=== PATIENT | female | born 1985 | race Caucasian/White ===

== ENCOUNTER 2016-09-18 10:06 | Emergency (ER) | payer OTHER ==
[2016-09-18 11:05] LABS: Appearance,Urine Clear (Clear); Bacteria,Urine Rare /hpf; Bilirubin,Urine Negative (Negative); Glucose,Urine (UA) Negative (Negative); Ketones,Urine Negative (Negative); Leukocyte Esterase,Urine Trace (Negative); Nitrite,Urine Negative (Negative); Particle Count 1500; Protein,Urine Negative (Negative); RBC,Urine 1 /hpf (0-5); Specific Gravity,Urine 1.002 (1.001-1.035); Squamous Epithelial Cell,Urine 2 /hpf (0-4); UA Billing (MACRO vs. MICRO) MICRO; Urobilinogen,Urine <2.0 mg/dL (<2.0); WBC,Urine 2 /hpf (0-5)
--- NOTE | 2016-09-18 11:14 | ED ---
Female Urogenital HPI - General Chief complaint: Vaginal Bleeding Stated complaint: poss miscarrage Time Seen by Provider: 09/18/16 10:30 Source: patient, RN notes reviewed Mode of arrival: ambulatory Limitations: no limitations - History of Present Illness Initial comments: 30-year-old female presents emergency Department with chief complaint of vaginal bleeding. Patient states that she is a 2. Patient states that she started having increased bleeding today has been seen in emergency department has had repeat hCG levels taken. Patient had an ultrasound already. Patient states that her RATE CLERK is Dr. Carrasco. Patient states that is bright red blood there is no clots no tissue. She states she has cramping that feels like it is her menstrual cycle. Last Menstrual Period: 08/11/16 - Related Data Home Medications Medication Instructions Recorded Confirmed Escitalopram [Lexapro] 20 mg PO DAILY 09/14/16 09/18/16 diphenhydrAMINE HCL [Benadryl] 25 mg PO HS 09/14/16 09/18/16 Allergies Allergy/AdvReac Type Severity Reaction Status Date / Time latex AdvReac Mild Rash/Hives Verified 09/18/16 10:40 Review of Systems ROS Statement: Those systems with pertinent positive or pertinent negative responses have been documented in the HPI. ROS Other: All systems not noted in ROS Statement are negative. Past Medical History Additional Past Medical History / Comment(s): appendectomy 2007, 2009 eptopic right fallopian tube removed. History of Any Multi-Drug Resistant Organisms: None Reported Past Surgical History: Appendectomy Past Anesthesia/Blood Transfusion Reactions: No Reported Reaction Past Psychological History: Anxiety, Bipolar Smoking Status: Current every day smoker Past Drug Use History: None Reported, Cocaine, Heroin, Marijuana, Opiates, Prescription Drug Abuse - Past Family History Brother(s) Family Medical History: Unable to Obtain Father Family Medical History: Hypertension General Exam Limitations: no limitations General appearance: alert, in no apparent distress Head exam: Present: atraumatic, normocephalic, normal inspection Respiratory exam: Present: normal lung sounds bilaterally. Absent: respiratory distress, wheezes, rales, rhonchi, stridor Cardiovascular Exam: Present: regular rate, normal rhythm, normal heart sounds. Absent: systolic murmur, diastolic murmur, rubs, gallop, clicks GI/Abdominal exam: Present: soft, normal bowel sounds. Absent: distended, tenderness, guarding, rebound, rigid Back exam: Absent: CVA tenderness (R), CVA tenderness (L) Neurological exam: Present: alert, oriented X3, CN II-XII intact Skin exam: Present: warm, dry, intact, normal color. Absent: rash Course Vital Signs 09/18/16 09/18/16 10:18 12:10 Temperature 98.5 F 97.6 F Pulse Rate 73 59 L Respiratory 18 16 Rate Blood Pressure 108/60 97/52 O2 Sat by Pulse 99 99 Oximetry Medical Decision Making - Lab Data Lab Results 09/18/16 09/18/16 Range/Units 10:55 11:00 HCG, Quant 408.1 mIU/mL Urine Color Colorless Urine Appearance Clear (Clear) Urine pH 6.0 (5.0-8.0) Ur Specific [place] 1.002 (1.001-1.035) Urine Protein Negative (Negative) Urine Glucose (UA) Negative (Negative) Urine Ketones Negative (Negative) Urine Blood Moderate H (Negative) Urine Nitrite Negative (Negative) Urine Bilirubin Negative (Negative) Urine Urobilinogen <2.0 (<2.0) mg/dL Ur Leukocyte Esterase Trace H (Negative) Urine RBC 1 (0-5) /hpf Urine WBC 2 (0-5) /hpf Ur Squamous Epith Cells 2 (0-4) /hpf Urine Bacteria Rare H (None) /hpf Disposition Clinical Impression: Threatened miscarriage in early Disposition: HOME SELF-CARE Condition: Stable Instructions: Threatened Miscarriage (ED) Additional Instructions: Please return to the Emergency Department if symptoms worsen or any other concerns. Referrals: Jamarcus Carrasco DO [Primary Care Provider] - 1-2 days Time of Disposition: 12:13
[2016-09-18 12:13] VITALS: BP 97/52; PULSE 59; RESP 16; TEMP 97.6
== END 2016-09-18 12:17 | disposition home or self-care (01) ==
LOC: EC 10:06 → MERGE 10:06 → EC 12:17
DX: O20.0 Threatened abortion (principal); Z3A.01 Less than 8 weeks gestation of pregnancy; F31.9 Bipolar disorder, unspecified; F41.9 Anxiety disorder, unspecified; F17.200 Nicotine dependence, unspecified, uncomplicated; Z79.899 Other long term (current) drug therapy; Z91.040 Latex allergy status
CPT/HCPCS: 36415; 81001; 84702; 99284

== ENCOUNTER 2016-09-21 09:01 | Emergency (ER) | payer OTHER ==
[2016-09-21 09:08] VITALS: BP 119/56; PULSE 78; RESP 16; TEMP 97.6
--- NOTE | 2016-09-21 09:36 | ED ---
Female Urogenital HPI - General Chief complaint: Vaginal Bleeding Stated complaint: bleeding, 5 weeks preg Time Seen by Provider: 09/21/16 09:08 Source: patient, RN notes reviewed Mode of arrival: ambulatory Limitations: no limitations - History of Present Illness Initial comments: 30-year-old female presents emergency department for recheck vaginal bleeding possible miscarriage. Patient has had bleeding last week or 2 and states that she's my had multiple ER visits with recheck ECGs. Patient states that has not been climbing as high as it should. Patient states that she has on-and-off abdominal cramping. Patient states she still is bright red blood per has slowed down tremendously. Patient states he has not been going through a pad every few hours. Patient states is less than her normal mental cycle. She denies any dysuria hematuria. Patient has no nausea vomiting diarrhea constipation. She has not seen her ENGINE DISPATCHER at this time. Last Menstrual Period: 08/11/16 - Related Data Home Medications Medication Instructions Recorded Confirmed Escitalopram [Lexapro] 20 mg PO DAILY 09/14/16 09/21/16 diphenhydrAMINE HCL [Benadryl] 25 mg PO HS 09/14/16 09/21/16 Allergies Allergy/AdvReac Type Severity Reaction Status Date / Time latex AdvReac Mild Rash/Hives Verified 09/21/16 09:11 Review of Systems ROS Statement: Those systems with pertinent positive or pertinent negative responses have been documented in the HPI. ROS Other: All systems not noted in ROS Statement are negative. Past Medical History Past Medical History: No Reported History Additional Past Medical History / Comment(s): no street drug since 2013 cacaine , heroin, opiates, marijuana History of Any Multi-Drug Resistant Organisms: None Reported Past Surgical History: Appendectomy Additional Past Surgical History / Comment(s): 2009 eptopic right fallopian tube removed. Past Anesthesia/Blood Transfusion Reactions: No Reported Reaction Past Psychological History: Anxiety, Bipolar Smoking Status: Current every day smoker Past Alcohol Use History: None Reported Past Drug Use History: None Reported - Past Family History Brother(s) Family Medical History: Unable to Obtain Father Family Medical History: Hypertension General Exam Limitations: no limitations General appearance: alert, in no apparent distress Respiratory exam: Present: normal lung sounds bilaterally. Absent: respiratory distress, wheezes, rales, rhonchi, stridor Cardiovascular Exam: Present: regular rate, normal rhythm, normal heart sounds. Absent: systolic murmur, diastolic murmur, rubs, gallop, clicks GI/Abdominal exam: Present: soft, normal bowel sounds. Absent: distended, tenderness, guarding, rebound, rigid Course Vital Signs 09/21/16 09:05 Temperature 97.6 F Pulse Rate 78 Respiratory 16 Rate Blood Pressure 119/56 O2 Sat by Pulse 96 Oximetry Medical Decision Making - Medical Decision Making 30-year-old female presented emergency department for recheck vaginal bleeding possible miscarriage. Patient's hCG G1 up from 400-700. Patient will follow- up with ENGINE DISPATCHER on Wednesday at her scheduled appointment return parameters were discussed. - Lab Data Lab Results 09/21/16 Range/Units 09:17 HCG, Quant 700.0 mIU/mL Disposition Clinical Impression: Threatened miscarriage in early Disposition: HOME SELF-CARE Condition: Stable Instructions: Threatened Miscarriage (ED) Additional Instructions: Please return to the Emergency Department if symptoms worsen or any other concerns. Referrals: Jamarcus Carrasco DO [REFERRING] - 1-2 days Time of Disposition: 10:08
== END 2016-09-21 10:05 | disposition home or self-care (01) ==
LOC: EC 09:01 → MERGE 09:01 → EC 10:05
DX: O20.0 Threatened abortion (principal); O99.341 Other mental disorders complicating pregnancy, first trimester; O99.331 Smoking (tobacco) complicating pregnancy, first trimester; F31.9 Bipolar disorder, unspecified; F41.9 Anxiety disorder, unspecified; F17.200 Nicotine dependence, unspecified, uncomplicated; Z3A.01 Less than 8 weeks gestation of pregnancy; Z79.899 Other long term (current) drug therapy; Z91.040 Latex allergy status; Z90.49 Acquired absence of other specified parts of digestive tract
CPT/HCPCS: 36415; 84702; 99284

== ENCOUNTER 2016-09-23 12:30 | Emergency (ER) | payer OTHER ==
--- NOTE | 2016-09-23 13:04 | ED ---
General Adult HPI - General Chief complaint: Abdominal Pain Stated complaint: L side cramping. 6 wks Time Seen by Provider: 09/23/16 12:52 Source: patient, RN notes reviewed, old records reviewed Mode of arrival: ambulatory Limitations: no limitations - History of Present Illness Initial comments: Patient 30-year-old female G4, P2 who presents emergency room today with a chief complaint of increased left lower quadrant pain. She does admit that she' s been having vaginal bleeding over the last week and a half. Does admit that she's had multiple visits here to the emergency room for this . She believes she is less than 6 weeks . Patient does admit that yesterday started having increased left lower quadrant pain. Patient states she's tried to call her PRODUCTION CONTROL MANAGER. She states she does have an appointment this coming Wednesday but did not have any answer today. Patient states still having vaginal bleeding. States is not been change in the amount. Denies any frequency symptoms. Patient denies any recent fever, chills, shortness of breath, chest pain, back pain, nausea or vomiting, numbness or tingling, dysuria or hematuria , constipation or diarrhea, headaches or visual changes, or any other complaints. - Related Data Home Medications Medication Instructions Recorded Confirmed FLUoxetine HCL [PROzac] 20 mg PO DAILY 09/23/16 09/23/16 [id number] Acid 1 cap PO HS 09/23/16 09/23/16 [-U Capsule (formulary)] Allergies Allergy/AdvReac Type Severity Reaction Status Date / Time latex Allergy Rash/Hives Verified 09/23/16 13:36 narcotics Allergy Unknown Uncoded 09/23/16 12:37 Review of Systems ROS Statement: Those systems with pertinent positive or pertinent negative responses have been documented in the HPI. ROS Other: All systems not noted in ROS Statement are negative. Past Medical History Past Medical History: No Reported History Additional Past Medical History / Comment(s): no street drug since 2013 cacaine , heroin, opiates, marijuana History of Any Multi-Drug Resistant Organisms: None Reported Past Surgical History: Appendectomy Additional Past Surgical History / Comment(s): 2009 eptopic right fallopian tube removed. Past Anesthesia/Blood Transfusion Reactions: No Reported Reaction Past Psychological History: Anxiety, Bipolar, No Psychological Hx Reported Smoking Status: Current every day smoker Past Alcohol Use History: None Reported Past Drug Use History: None Reported - Past Family History Brother(s) Family Medical History: Unable to Obtain Father Family Medical History: Hypertension General Exam - General Exam Comments Initial Comments: General: The patient is awake and alert, in no distress, and does not appear acutely ill. Eye: Pupils are equal, round and reactive to light, extra-ocular movements are intact. No nystagmus. There is normal conjunctiva bilaterally. No signs of icterus. Ears, nose, mouth and throat: There are moist mucous membranes and no oral lesions. Neck: The neck is supple, there is no tenderness or JVD. Cardiovascular: There is a regular rate and rhythm. No murmur, rub or gallop is appreciated. Respiratory: Lungs are clear to auscultation, respirations are non-labored, breath sounds are equal. No wheezes, stridor, rales, or rhonchi. Gastrointestinal: Soft, non-distended, non-tender abdomen without masses or organomegaly noted. There is no rebound or guarding present. No CVA tenderness. Bowel sounds are unremarkable. Musculoskeletal: Normal ROM, no tenderness. Strength 5/5. Sensation intact. Pulses equal bilaterally 2+. Neurological: A&O x 3. CN II-XII intact, There are no obvious motor or sensory deficits. Coordination appears grossly intact. Speech is normal. Skin: Skin is warm and dry and no rashes or lesions are noted. Psychiatric: Cooperative, appropriate mood & affect, normal judgment. Limitations: no limitations Course Vital Signs 09/23/16 12:35 Temperature 98.1 F Pulse Rate 80 Respiratory 20 Rate Blood Pressure 106/56 O2 Sat by Pulse 98 Oximetry Medical Decision Making - Medical Decision Making Patient's ultrasound shows no evidence of gestational sac or ectopic at this time. Patient's beta hCG has dropped from 700 from just 2 days ago down to 230s today. Results were discussed with the patient. Patient advised us that the miscarriage at this time. Patient is advised follow-up the PRODUCTION CONTROL MANAGER over the next 1-2 days. Advised return to emergency room symptoms increase or worsen or for any other concerns. Patient states understanding and is in agreement. - Lab Data Result diagrams: 09/23/16 13:18 09/23/16 13:18 Lab Results 08/09/17 08/09/17 08/09/17 Range/Units 13:18 13:18 13:40 WBC 9.0 (3.8-10.6) k/uL RBC 4.07 (3.80-5.40) m/uL Hgb 12.5 (11.4-16.0) gm/dL Hct 38.5 (34.0-46.0) % MCV 94.7 (80.0-100.0) fL MCH 30.8 (25.0-35.0) pg MCHC 32.5 (31.0-37.0) g/dL RDW 13.5 (11.5-15.5) % Plt Count 284 (150-450) k/uL Neutrophils % 68 % Lymphocytes % 24 % Monocytes % 4 % Eosinophils % 2 % Basophils % 0 % Neutrophils # 6.1 (1.3-7.7) k/uL Lymphocytes # 2.2 (1.0-4.8) k/uL Monocytes # 0.3 (0-1.0) k/uL Eosinophils # 0.2 (0-0.7) k/uL Basophils # 0.0 (0-0.2) k/uL Sodium 140 (137-145) mmol/L Potassium 4.3 (3.5-5.1) mmol/L Chloride 106 (98-107) mmol/L Carbon Dioxide 24 (22-30) mmol/L Anion Gap 10 mmol/L BUN 11 (7-17) mg/dL Creatinine 0.77 (0.52-1.04) mg/dL Est GFR (MDRD) Af Amer >60 (>60 ml/min/1.73 sqM) Est GFR (MDRD) Non-Af >60 (>60 ml/min/1.73 sqM) Glucose 83 (74-99) mg/dL Calcium 9.2 (8.4-10.2) mg/dL Total Bilirubin 0.3 (0.2-1.3) mg/dL AST 19 (14-36) U/L ALT 30 (9-52) U/L Alkaline Phosphatase 51 (38-126) U/L Total Protein 7.7 (6.3-8.2) g/dL Albumin 4.5 (3.5-5.0) g/dL HCG, Quant 238.7 mIU/mL Urine Color Yellow Urine Appearance Cloudy H (Clear) Urine pH 7.0 (5.0-8.0) Ur Specific [place] 1.013 (1.001-1.035) Urine Protein Negative (Negative) Urine Glucose (UA) Negative (Negative) Urine Ketones Negative (Negative) Urine Blood Large H (Negative) Urine Nitrite Negative (Negative) Urine Bilirubin Negative (Negative) Urine Urobilinogen <2.0 (<2.0) mg/dL Ur Leukocyte Esterase Negative (Negative) Urine RBC 3 (0-5) /hpf Urine WBC 3 (0-5) /hpf Ur Squamous Epith Cells 1 (0-4) /hpf Urine Bacteria Rare H (None) /hpf Urine Mucus Rare H (None) /hpf Disposition Clinical Impression: Threatened Disposition: HOME SELF-CARE Condition: Stable Instructions: Threatened Miscarriage (ED) Additional Instructions: Please follow-up with PRODUCTION CONTROL MANAGER over the next 1-2 days. Please return to emergency room if symptoms increase or worsen or for any other concerns. Referrals: Osmar Adams DO [Primary Care Provider] - 1-2 days Time of Disposition: 15:20
[2016-09-23 14:10] LABS: Basophils % (A) 0 %; CH 31.8; CHCM 33.7; Eosinophils # (A) 0.2 k/uL (0-0.7); Eosinophils % (A) 2 %; HCT 38.5 % (34.0-46.0); HDW 2.11; HGB 12.5 gm/dL (11.4-16.0); Luc # (Auto) 0.13; Luc % (Auto) 2; Lymphocytes # (A) 2.2 k/uL (1.0-4.8); Lymphocytes % (A) 24 %; MCH 30.8 pg (25.0-35.0); MCHC 32.5 g/dL (31.0-37.0); MCV 94.7 fL (80.0-100.0); Mean Platelet Volume 7.7; Monocytes # (A) 0.3 k/uL (0-1.0); Monocytes % (A) 4 %; Neutrophils # (A) 6.1 k/uL (1.3-7.7); Neutrophils % (A) 68 %; RBC 4.07 m/uL (3.80-5.40); RDW 13.5 % (11.5-15.5); WBC (Perox) 9.73
[2016-09-23 14:19] LABS: ALT 30 U/L (9-52); AST 19 U/L (14-36); Alkaline Phosphatase 51 U/L (38-126); Anion Gap 10 mmol/L; Blood Urea Nitrogen 11 mg/dL (7-17); Calcium 9.2 mg/dL (8.4-10.2); Carbon Dioxide 24 mmol/L (22-30); Chloride 106 mmol/L (98-107); Glucose 83 mg/dL (74-99); Non-African American GFR(MDRD) >60 (>60 ml/min/1.73 sqM); Potassium 4.3 mmol/L (3.5-5.1); Sodium 140 mmol/L (137-145); Total Bilirubin 0.3 mg/dL (0.2-1.3); Total Protein 7.7 g/dL (6.3-8.2)
[2016-09-23 14:33] LABS: Appearance,Urine Cloudy (Clear); Bilirubin,Urine Negative (Negative); Glucose,Urine (UA) Negative (Negative); Ketones,Urine Negative (Negative); Protein,Urine Negative (Negative); Specific Gravity,Urine 1.013 (1.001-1.035)
[2016-09-23 14:34] LABS: Bacteria,Urine Rare /hpf; Leukocyte Esterase,Urine Negative (Negative); Mucus,Urine Rare /hpf; Nitrite,Urine Negative (Negative); Particle Count 2946; RBC,Urine 3 /hpf (0-5); Squamous Epithelial Cell,Urine 1 /hpf (0-4); UA Billing (MACRO vs. MICRO) MICRO; Urobilinogen,Urine <2.0 mg/dL (<2.0); WBC,Urine 3 /hpf (0-5)
[2016-09-23 14:37] LABS: HCG,Quantitative Serum 238.7 mIU/mL
--- NOTE | 2016-09-23 15:12 | US ---
EXAMINATION TYPE: US OB <=14 wks transvag plus Dopplers DATE OF EXAM: 09/23/2016 COMPARISON: 09/14/2016 CLINICAL HISTORY: 30-year-old female Pain. Bleeding x 1.5 weeks EXAM PERFORMED: Transvaginal (TV) and Transabdominal (TA). Color Doppler and spectral waveform glory sis of the ovarian arteries and veins. FINDINGS: EXAM MEASUREMENTS: GESTATIONAL AGE / DATING Physician Established: none Dates by LMP: ( 6 weeks/1 days) EDC: 05/18/2017 Dates by First Scan: none Dates by Current Scan for: no IUP MATERNAL ANATOMY Uterus: Anteverted measuring 7.1 x 4.6 x 5.2 cm. May be deformity along the anterior uterine body/low er uterine segment with focal flap-like deformity possibly relating to prior . There may be some associated calcifications. Endometrial stripe: 5.1 mm. Right Ovary: 1.5 x 2.1 x 1.4 cm with follicular change. Left Ovary: 2.5 x 2.4 x 2.2 cm with follicular change. Satisfactory arterial and venous flow on both sides. Post CDS / Adnexa: wnl Presence of free fluid: no Presence of corpus luteal cyst: no Presence of subchorionic bleed: no GESTATION / SURVEY IUP: No IUP seen at this time BOARDING HOUSE MANAGER NOTES: flap-like deformity of anterior unterine wall with calcifications, possibly consi stent with history of previous . Bilateral ovaries show arterial and venous waveforms; no i ndication of torsion IMPRESSION: 1. No visualized intrauterine or ectopic . In the setting of a positive test, diff erential considerations include early , failed , and nonvisualized ectopic pregnanc y. Recommend serial beta hCG and ultrasound follow-up as indicated. 2. Possible soft tissue deformity along the anterior uterus may represent sequela of prior . If indicated, MRI can better characterize the anatomy. 3. No sonographic evidence for ovarian torsion.
[2016-09-23 15:50] VITALS: BP 96/56; PULSE 74; RESP 18; TEMP 98.2
== END 2016-09-23 15:50 | disposition home or self-care (01) ==
LOC: EC 12:30
DX: O20.0 Threatened abortion (principal); O99.331 Smoking (tobacco) complicating pregnancy, first trimester; F17.200 Nicotine dependence, unspecified, uncomplicated; Z79.899 Other long term (current) drug therapy; Z88.5 Allergy status to narcotic agent; Z91.040 Latex allergy status; Z90.79 Acquired absence of other genital organ(s); Z90.49 Acquired absence of other specified parts of digestive tract; Z3A.01 Less than 8 weeks gestation of pregnancy
CPT/HCPCS: 36415; 76801; 76817; 80053; 81001; 84702; 85025; 87086; 99284

== ENCOUNTER → 2017-01-11 | Outpatient (CLI) | payer OTHER | END | disposition home or self-care (01) | LOC: LABWHC1 08:09 | PROVIDERS: ATTEND Obstetrics & Gynecology | DX: N91.2 Amenorrhea, unspecified (principal) | CPT/HCPCS: 36415; 84702 ==

== ENCOUNTER 2018-06-26 22:03 | Emergency (ER) | payer OTHER ==
[2018-06-26 22:12] VITALS: RESP 19
--- NOTE | 2018-06-26 22:17 | ED ---
Chest Pain HPI - General Chief Complaint: Chest Pain Stated Complaint: Chest Pain Time Seen by Provider: 06/26/18 22:16 Source: patient Mode of arrival: EMS Limitations: no limitations - History of Present Illness Initial Comments: Joelle a pleasant 32-year-old female with a distant history of polysubstance abuse who presents the ER today via EMS for evaluation of tightness in her chest. Patient reports that she was at a support meeting when she began to feel like there is tightness in her chest and she couldn't catch her breath. Patient reports this was similar to previous anxiety attacks. She left the meeting and return home but symptoms persisted at which time she contacted her primary care provider. Patient reports that her primary care provider had been concerned about an abnormality this on a previous EKG so they advised her to come to the ER for evaluation. Patient contacted EMS for transport to the hospital she was given aspirin but no nitro she remained hemodynamically stable and arrived in the ER reporting that she is feeling much better. - Related Data Home Medications Medication Instructions Recorded Confirmed Albuterol Inhaler [Ventolin Hfa 2 puff INHALATION RT-Q6H PRN 06/26/18 06/26/18 Inhaler] Citalopram Hydrobromide 20 mg PO DAILY 06/26/18 06/26/18 [Citalopram HBr] Metoclopramide [Reglan] 10 mg PO QID PRN 06/26/18 06/26/18 OXcarbazepine [Trileptal] 300 mg PO TID 06/26/18 06/26/18 Omeprazole [PriLOSEC] 20 mg PO DAILY 06/26/18 06/26/18 diphenhydrAMINE [Benadryl] 25 mg PO HS PRN 06/26/18 06/26/18 hydrOXYzine HCL 25 mg PO TID 06/26/18 06/26/18 Allergies Allergy/AdvReac Type Severity Reaction Status Date / Time latex Allergy Rash/Hives Verified 06/26/18 22:25 narcotics Allergy Unknown Uncoded 06/26/18 22:25 Review of Systems ROS Statement: Those systems with pertinent positive or pertinent negative responses have been documented in the HPI. ROS Other: All systems not noted in ROS Statement are negative. EKG Findings - EKG Comments: EKG Findings:: KG was obtained due to complaint of chest pain and EKG obtained at 2214, rate is 65 rhythm is sinus there is normal axis and normal intervals, NV 114, QRS 82, QTc is 438 there are no acute ST elevations or depressions there is no evidence of acute ischemia or infarction. Past Medical History Past Medical History: No Reported History Additional Past Medical History / Comment(s): no street drug since 2013 cacaine, heroin, opiates, marijuana History of Any Multi-Drug Resistant Organisms: None Reported Past Surgical History: Appendectomy Additional Past Surgical History / Comment(s): 2009 eptopic right fallopian tube removed. Past Anesthesia/Blood Transfusion Reactions: No Reported Reaction Past Psychological History: Anxiety, Bipolar, Depression Smoking Status: Current every day smoker Past Alcohol Use History: None Reported Past Drug Use History: Heroin, Marijuana - Past Family History Brother(s) Family Medical History: Unable to Obtain Father Family Medical History: Hypertension General Exam Limitations: no limitations Course Vital Signs 06/26/18 22:04 Temperature 98.5 F Pulse Rate 67 Respiratory 19 Rate Blood Pressure 146/67 O2 Sat by Pulse 99 Oximetry [facility] was seen and evaluated history was obtained from the patient Patient with no cardiac history only risk factor is smoking presenting with atypical chest pain physical exam is unremarkable PERC and Wells negative HEART score - 1 for smoking EKG is nonischemic X-ray with signs of a left-sided pleural effusion patient does report that she has recurrent bronchitis and has been told she had fluid on her lungs before Labs were ordered and resulted with no abnormalities d-dimer and troponin both negative She remained asymptomatic throughout her 2 hour stay in the emergency department All results were discussed with the patient, return parameters were discussed and the patient was discharged home in stable condition. - Wells Criteria Clinical Symptoms of DVT: (0) No No Alternative Diagnosis: (0) No Immobilization of Surgery in Previous 4 Weeks: (0) No Previous DVT/PE: (0) No Hemoptysis: (0) No Malignancy: (0) No - NING Score Age > 65: (0) No 3 or more CAD Risk Factors: (0) No Known CAD with more than 50% Stenosis: (0) No Aspirin use within the Past 7 Days: (0) No Elevated Cardiac Markers: (0) No ST Deviation Greater than 0.5mm: (0) No Disposition Clinical Impression: Atypical chest pain, Pleural effusion, Bronchitis, Tobacco abuse Disposition: HOME SELF-CARE Condition: Stable Instructions (If sedation given, give patient instructions): Chest Pain (ED) Is patient prescribed a controlled substance at d/c from ED?: No Referrals: Osmar Adams DO [Primary Care Provider] - 1-2 days
--- NOTE | 2018-06-26 23:08 | XR ---
EXAM: XR Chest, 2 Views CLINICAL HISTORY: ITS.REASON XR Reason: Pain TECHNIQUE: Frontal and lateral views of the chest. COMPARISON: No relevant prior studies available. FINDINGS: Lungs: Unremarkable. No consolidation. Pleural space: Small left pleural effusion. No pneumothorax. Heart: Unremarkable. No cardiomegaly. Mediastinum: Unremarkable. Bones/joints: No acute osseous abnormality. Tubes, lines and devices: Telemetry leads overlie the patient. IMPRESSION: Small left pleural effusion.
[2018-06-26 23:37] LABS: Basophils # (A) 0.1 k/uL (0-0.2); Basophils % (A) 1 %; Eosinophils # (A) 0.1 k/uL (0-0.7); Eosinophils % (A) 1 %; HCT 41.3 % (34.0-46.0); HGB 13.9 gm/dL (11.4-16.0); Lymphocytes # (A) 3.1 k/uL (1.0-4.8); Lymphocytes % (A) 32 %; MCH 31.7 pg (25.0-35.0); MCHC 33.8 g/dL (31.0-37.0); MCV 93.9 fL (80.0-100.0); Mean Platelet Volume 7.9; Monocytes # (A) 0.3 k/uL (0-1.0); Monocytes % (A) 4 %; Neutrophils # (A) 5.9 k/uL (1.3-7.7); Neutrophils % (A) 61 %; Platelet Count 226 k/uL (150-450); RDW 13.1 % (11.5-15.5); WBC 9.7 k/uL (3.8-10.6)
[2018-06-26 23:39] LABS: ALT 21 U/L (9-52); AST 22 U/L (14-36); Albumin 4.9 g/dL (3.5-5.0); Alkaline Phosphatase 57 U/L (38-126); Anion Gap 11 mmol/L; Blood Urea Nitrogen 14 mg/dL (7-17); Carbon Dioxide 25 mmol/L (22-30); Chloride 102 mmol/L (98-107); Glucose 89 mg/dL (74-99); Magnesium 1.9 mg/dL (1.6-2.3); Potassium 4.2 mmol/L (3.5-5.1); Sodium 138 mmol/L (137-145); Total Bilirubin 0.4 mg/dL (0.2-1.3); Total Protein 8.2 g/dL (6.3-8.2)
[2018-06-26 23:43] LABS: D-Dimer <0.17 mg/L FEU (<0.60); Partial Thromboplastin Time 27.3 sec (22.0-30.0); Prothrombin Time 10.9 sec (9.0-12.0)
[2018-06-27 00:32] VITALS: BP 132/83; PULSE 79; TEMP 98
== END 2018-06-27 00:30 | disposition home or self-care (01) ==
LOC: EC 22:03
DX: R07.89 Other chest pain (principal); J90 Pleural effusion, not elsewhere classified; J40 Bronchitis, not specified as acute or chronic; F31.9 Bipolar disorder, unspecified; F41.9 Anxiety disorder, unspecified; F17.200 Nicotine dependence, unspecified, uncomplicated; Z79.899 Other long term (current) drug therapy; Z88.5 Allergy status to narcotic agent; Z91.040 Latex allergy status
CPT/HCPCS: 36415; 71046; 80053; 83735; 84484; 85025; 85379; 85610; 85730; 93005; 99285

== ENCOUNTER → 2018-07-05 | Outpatient (CLI) | payer OTHER ==
--- NOTE | 2018-07-22 11:56 | EM ---
EVENT MONITOR DATE OF SERVICE: 07/05/2018 INDICATION: Palpitation. CLINICAL INFORMATION: The patient was monitored for 14 days. The baseline rhythm appeared to be a sinus mechanism. The patient did have overall sinus rhythm with multiple episodes of sinus tachycardia and multiple episodes of sinus bradycardia. Beside that, she did have multiple episode of paroxysmal atrial tachycardia with a total of 2 episodes only. At the end of the recording, the patient did have did have multiple PVCs with ventricular quadrigeminy. No evidence of sinus pause or sinus arrest seen. No evidence of any advanced AV block seen. CONCLUSION: 1. This is a 14 day event monitor. 2. The baseline rhythm is a sinus mechanism. 3. Frequent episodes of premature ventricular contractions. 4. The patient did have 2 episodes of paroxysmal atrial tachycardia. 5. At the end of recording, the patient did have multiple episodes of ventricular quadrigeminy. 6. No specific the patient did have multiple of symptoms including chest discomfort and the symptoms were associated with normal sinus mechanism. 7. I do advise a 24 hour Holter monitor to assess the frequency of the PVCs. MMODL / IJN: [id number] /
== END | disposition home or self-care (01) ==
LOC: RADECHMAIN 09:31
PROVIDERS: ATTEND Family Medicine
DX: R42 Dizziness and giddiness (principal); I49.3 Ventricular premature depolarization; I47.1 Supraventricular tachycardia
CPT/HCPCS: 93270

== ENCOUNTER 2018-07-15 12:04 | Emergency (ER) | payer OTHER ==
[2018-07-15 12:17] VITALS: RESP 18; TEMP 98.2
--- NOTE | 2018-07-15 12:50 | ED ---
Abdominal Pain HPI - General Chief Complaint: Abdominal Pain Stated Complaint: Abd Pain-6 weeks Time Seen by Provider: 07/15/18 12:26 Source: patient Mode of arrival: ambulatory Limitations: no limitations - History of Present Illness Initial Comments: Patient is a 32-year-old female complaining of lower abdominal cramping 1 day. She took a home test which was negative but then had a blood work done in [place] 10 days ago which showed a positive . Denies abdominal pain, fever, vaginal bleeding or discharge. States she feels very similar to last time she was , with associated nausea at times and breast tenderness. This would be her sixth . Of note, patient is asking for a refill on her psych medicines, oxcarbazepine, as she switched doctors and is afraid she will run out. - Related Data Home Medications Medication Instructions Recorded Confirmed Citalopram Hydrobromide 20 mg PO DAILY 06/26/18 07/15/18 [Citalopram HBr] OXcarbazepine [Trileptal] 300 mg PO TID 06/26/18 07/15/18 Omeprazole [PriLOSEC] 20 mg PO DAILY 06/26/18 07/15/18 diphenhydrAMINE [Benadryl] 25 - 50 mg PO HS PRN 06/26/18 07/15/18 hydrOXYzine HCL 25 mg PO TID 06/26/18 07/15/18 Previous Rx's Medication Instructions Recorded OXcarbazepine [Trileptal] 300 mg PO TID 3 Days #9 tablet 07/15/18 Allergies Allergy/AdvReac Type Severity Reaction Status Date / Time latex Allergy Rash/Hives Verified 07/15/18 12:41 narcotics Allergy Unknown Uncoded 07/15/18 12:17 Review of Systems ROS Statement: Those systems with pertinent positive or pertinent negative responses have been documented in the HPI. ROS Other: All systems not noted in ROS Statement are negative. Past Medical History Past Medical History: Atrial Fibrillation Additional Past Medical History / Comment(s): no street drug since 2013 cocaine, heroin, opiates, marijuana History of Any Multi-Drug Resistant Organisms: None Reported Past Surgical History: Appendectomy Additional Past Surgical History / Comment(s): 2009 eptopic right fallopian tube removed. Past Anesthesia/Blood Transfusion Reactions: No Reported Reaction Past Psychological History: Anxiety, Bipolar, Depression Smoking Status: Current every day smoker Past Alcohol Use History: None Reported Past Drug Use History: Heroin, Marijuana - Past Family History Brother(s) Family Medical History: Unable to Obtain Father Family Medical History: Hypertension General Exam - General Exam Comments Initial Comments: GENERAL: Well-appearing, well-nourished and in no acute distress. HEAD: Atraumatic, normocephalic. EYES: Pupils equal round and reactive to light, extraocular movements intact, sclera anicteric, conjunctiva are normal. ENT: TMs normal, nares patent, oropharynx clear without exudates. Moist mucous membranes. NECK: Normal range of motion, supple without lymphadenopathy or JVD. LUNGS: Breath sounds clear to auscultation bilaterally and equal. No wheezes rales or rhonchi. HEART: Regular rate and rhythm without murmurs, rubs or gallops. ABDOMEN: Soft, nontender, normoactive bowel sounds. No guarding, no rebound. No masses appreciated. : Deferred EXTREMITIES: Normal range of motion, no pitting or edema. No clubbing or cyanosis. NEUROLOGICAL: Cranial nerves II through XII grossly intact. Normal speech, normal gait. PSYCH: Normal mood, normal affect. SKIN: Warm, Dry, normal turgor, no rashes or lesions noted. Limitations: no limitations Course Vital Signs 07/15/18 07/15/18 12:14 14:51 Temperature 98.2 F Pulse Rate 83 68 Respiratory 18 18 Rate Blood Pressure 115/63 111/70 O2 Sat by Pulse 98 100 Oximetry Medical Decision Making - Medical Decision Making Patient is a 32-year-old female complaining of lower abdominal cramping x one day. States she feels very similar to last time she was . Exam is normal, no abdominal tenderness. Urine hCG is negative. UA has small amount of blood. Serum hCG is negative. Patient discharged home. Case discussed with Dr. Prince. - Lab Data Lab Results 07/15/18 07/15/18 07/15/18 Range/Units 12:17 12:17 14:42 HCG, Quant <2.4 mIU/mL Urine Color Yellow Urine Appearance Clear (Clear) Urine pH 6.0 (5.0-8.0) Ur Specific [place] 1.038 H (1.001-1.035) Urine Protein 1+ H (Negative) Urine Glucose (UA) Negative (Negative) Urine Ketones Negative (Negative) Urine Blood Small H (Negative) Urine Nitrite Negative (Negative) Urine Bilirubin Negative (Negative) Urine Urobilinogen 2.0 (<2.0) mg/dL Ur Leukocyte Esterase Negative (Negative) Urine RBC 6 H (0-5) /hpf Urine WBC 2 (0-5) /hpf Ur Squamous Epith Cells 1 (0-4) /hpf Urine Mucus Moderate H (None) /hpf Urine HCG, Qual Not Detected (Not Detectd) Disposition Clinical Impression: Abdominal pain Disposition: HOME SELF-CARE Condition: Stable Instructions (If sedation given, give patient instructions): Abdominal Pain (ED) Additional Instructions: Please return to the Emergency Department if symptoms worsen or any other concerns. Prescriptions: OXcarbazepine [Trileptal] 300 mg PO TID 3 Days #9 tablet Is patient prescribed a controlled substance at d/c from ED?: No Referrals: Osmar Adams DO [Primary Care Provider] - 1-2 days
[2018-07-15 13:03] LABS: Appearance,Urine Clear (Clear); Bilirubin,Urine Negative (Negative); Blood,Urine Small (Negative); Color,Urine Yellow; Glucose,Urine (UA) Negative (Negative); Ketones,Urine Negative (Negative); Leukocyte Esterase,Urine Negative (Negative); Mucus,Urine Moderate /hpf; Nitrite,Urine Negative (Negative); Protein,Urine 1+ (Negative); RBC,Urine 6 /hpf (0-5); Specific Gravity,Urine 1.038 (1.001-1.035); Squamous Epithelial Cell,Urine 1 /hpf (0-4)
[2018-07-15 14:52] VITALS: BP 111/70; PULSE 68
[2018-07-17 14:24] LABS: C. trachomatis,PCR Negative (Neg,Equiv); Chlamydia trachomatis Source Urine
[2018-07-17 14:29] LABS: N. gonorrhoeae,PCR Negative (Neg,Equiv); Neisseria Source Urine
== END 2018-07-15 16:06 | disposition home or self-care (01) ==
LOC: EC 12:04
DX: R10.30 Lower abdominal pain, unspecified (principal); F31.9 Bipolar disorder, unspecified; F41.9 Anxiety disorder, unspecified; F17.200 Nicotine dependence, unspecified, uncomplicated; Z32.02 Encounter for pregnancy test, result negative; Z79.899 Other long term (current) drug therapy; Z91.040 Latex allergy status; Z88.5 Allergy status to narcotic agent; Z90.49 Acquired absence of other specified parts of digestive tract
CPT/HCPCS: 36415; 81001; 81025; 84702; 87491; 87591; 99284

== ENCOUNTER 2022-07-12 15:24 | Emergency (ER) | payer OTHER ==
[2022-07-12 16:59] LABS: Basophils % (A) 0 %; Eosinophils # (A) 0.2 k/uL (0-0.7); Eosinophils % (A) 2 %; HCT 42.5 % (34.0-46.0); HGB 14.4 gm/dL (11.4-16.0); Lymphocytes % (A) 21 %; MCH 31.6 pg (25.0-35.0); MCHC 33.8 g/dL (31.0-37.0); MCV 93.4 fL (80.0-100.0); Mean Platelet Volume 7.7; Monocytes # (A) 0.3 k/uL (0-1.0); Monocytes % (A) 3 %; Neutrophils # (A) 6.5 k/uL (1.3-7.7); Neutrophils % (A) 72 %; Platelet Count 273 k/uL (150-450); RBC 4.55 m/uL (3.80-5.40); RDW 11.9 % (11.5-15.5); WBC 9.1 k/uL (3.8-10.6)
[2022-07-12 16:59] LABS: Appearance,Urine Clear (Clear); Bilirubin,Urine Negative (Negative); Blood,Urine Negative (Negative); Color,Urine Light Yellow; Glucose,Urine (UA) Negative (Negative); Ketones,Urine Negative (Negative); Leukocyte Esterase,Urine Negative (Negative); Nitrite,Urine Negative (Negative); PH, Urine 6.5 (5.0-8.0); Protein,Urine Negative (Negative); Specific Gravity,Urine 1.006 (1.001-1.035); Urobilinogen,Urine <2.0 mg/dL (<2.0)
[2022-07-12 17:17] LABS: ALT 18 U/L (4-34); AST 26 U/L (14-36); African American GFR (CKD) >90 (>60 ml/min/1.73 sqM); Albumin 4.6 g/dL (3.5-5.0); Alkaline Phosphatase 49 U/L (38-126); Anion Gap 11 mmol/L; Blood Urea Nitrogen 12 mg/dL (7-17); Calcium 9.4 mg/dL (8.4-10.2); Carbon Dioxide 24 mmol/L (22-30); Chloride 102 mmol/L (98-107); Glucose 89 mg/dL (74-99); Non-African American GFR(CKD) >90 (>60 ml/min/1.73 sqM); Sodium 137 mmol/L (137-145); Total Bilirubin 0.4 mg/dL (0.2-1.3); Total Protein 8.4 g/dL (6.3-8.2)
--- NOTE | 2022-07-12 18:21 | US ---
EXAMINATION TYPE: Transabdominal DATE OF EXAM: 07/12/2022 6:08 PM COMPARISON: No prior for this . OB US 2017 CLINICAL INDICATION: Female, 36 years old with history of pain; Hx miscarriages, PCOS, C section. Pat ient is having some cramping. EXAM PERFORMED: Transabdominal (TA) EXAM MEASUREMENTS: GESTATIONAL AGE / DATING Physician Established: Not yet established Dates by LMP: (12 weeks/4 days) EDC: 01/20/2023 Dates by First Scan: This is first scan Dates by Current Scan for: (12 weeks/0 days) EDC: 01/24/2023 MATERNAL ANATOMY Uterus: 13.8 x 9.4 x 8.0 cm Right Ovary: 3.1 x 1.7 x 1.9 cm Left Ovary: 3.2 x 2.1 x 1.7 cm Post CDS / Adnexa: Appears wnl Presence of free fluid: No Presence of corpus luteal cyst: Not seen Presence of subchorionic bleed: Complex area seen adjacent to the gestational sac: 1.4 x 0.8 x 1.4 cm . Subchorionic hemorrhage involves less than 10% of the gestational sac circumference. GESTATION / SURVEY CRL: 5.35 cm (12 weeks/0 days) Yolk Sac (normal less than 6mm): Not seen Heart Rate: 163 bpm Rhythm: Normal IUP: Viable IUP Nuchal Translucency 10-14wks (normal less than 3mm): Not well seen Date of LMP: 04/15/2022 Beta HcG (if available): Not available IMPRESSION: 1. Live intrauterine gestation with gestational age of approximately 12 weeks and 0 days per crown-ru mp length. 2. Small subchorionic hemorrhage.
--- NOTE | 2022-07-12 19:03 | ED ---
Abdominal Pain HPI - General Chief Complaint: Abdominal Pain Stated Complaint: 12 weeks preg-cramping Time Seen by Provider: 07/12/22 15:45 Source: patient Mode of arrival: ambulatory Limitations: no limitations - History of Present Illness Initial Comments: 36-year-old female who is who presents to the emergency department approximately 12 weeks . States that she started having some light spotting today. Denies any abdominal trauma. No lower abdominal cramping. Follows with Dr. Garcia and has had normal care. States that she did have a ultrasound which demonstrated an intrauterine . She denies any lightheadedness or dizziness. Admits to slight increase in urination. No hematuria. Also has had some diarrhea. No other alleviating, precipiating or modifying factors - Related Data Home Medications Medication Instructions Recorded Confirmed Citalopram Hydrobromide 20 mg PO DAILY 06/26/18 07/15/18 [Citalopram HBr] OXcarbazepine [Trileptal] 300 mg PO TID 06/26/18 07/15/18 Omeprazole [PriLOSEC] 20 mg PO DAILY 06/26/18 07/15/18 diphenhydrAMINE [Benadryl] 25 - 50 mg PO HS PRN 06/26/18 07/15/18 hydrOXYzine HCL 25 mg PO TID 06/26/18 07/15/18 Previous Rx's Medication Instructions Recorded OXcarbazepine [Trileptal] 300 mg PO TID 3 Days #9 tablet 07/15/18 Allergies Allergy/AdvReac Type Severity Reaction Status Date / Time latex Allergy Rash/Hives Verified 07/12/22 15:46 narcotics Allergy Unknown Uncoded 07/12/22 15:46 Review of Systems ROS Statement: Those systems with pertinent positive or pertinent negative responses have been documented in the HPI. ROS Other: All systems not noted in ROS Statement are negative. Past Medical History Past Medical History: Atrial Fibrillation Additional Past Medical History / Comment(s): no street drug since 2013 cocaine, heroin, opiates, marijuana History of Any Multi-Drug Resistant Organisms: None Reported Past Surgical History: Appendectomy, Section, Cholecystectomy, Orthopedic Surgery Additional Past Surgical History / Comment(s): 2009 eptopic right fallopian tube removed. Past Anesthesia/Blood Transfusion Reactions: No Reported Reaction Past Psychological History: Anxiety, Bipolar, Depression Smoking Status: Vaper Past Alcohol Use History: None Reported Past Drug Use History: Heroin, Marijuana - Past Family History Brother(s) Family Medical History: Unable to Obtain Father Family Medical History: Hypertension General Exam Limitations: no limitations General appearance: alert, in no apparent distress Head exam: Present: atraumatic, normocephalic, normal inspection Eye exam: Present: normal appearance, PERRL, EOMI. Absent: scleral icterus, conjunctival injection, periorbital swelling ENT exam: Present: normal exam, mucous membranes moist Neck exam: Present: normal inspection. Absent: tenderness, meningismus, lymphadenopathy Respiratory exam: Present: normal lung sounds bilaterally. Absent: respiratory distress, wheezes, rales, rhonchi, stridor Cardiovascular Exam: Present: regular rate, normal rhythm, normal heart sounds. Absent: systolic murmur, diastolic murmur, rubs, gallop, clicks GI/Abdominal exam: Present: soft, normal bowel sounds. Absent: distended, tenderness, guarding, rebound, rigid Extremities exam: Present: normal inspection, full ROM, normal capillary refill. Absent: tenderness, pedal edema, joint swelling, calf tenderness Back exam: Present: normal inspection Neurological exam: Present: alert, oriented X3, CN II-XII intact Psychiatric exam: Present: normal affect, normal mood Skin exam: Present: warm, dry, intact, normal color. Absent: rash Course Vital Signs 07/12/22 07/12/22 07/12/22 15:44 16:46 17:46 Temperature 97.9 F Pulse Rate 79 74 77 Respiratory 20 16 20 Rate Blood Pressure 113/71 130/64 114/65 O2 Sat by Pulse 98 98 99 Oximetry 07/12/22 07/12/22 18:23 19:06 Temperature 98 F Pulse Rate 77 68 Respiratory 20 16 Rate Blood Pressure 114/65 126/68 O2 Sat by Pulse 100 98 Oximetry Medical Decision Making - Medical Decision Making Was pt. sent in by a medical professional or institution ([facility], MULTIFOCAL BUTTON INSPECTOR, urgent care, hospital, or half-way...) When possible be specific @ -No Did you speak to anyone other than the patient for history (EMS, parent, family, police, friend...)? What history was obtained from this source @ -No Did you review nursing and triage notes (agree or disagree)? Why? @ -I reviewed and agree with nursing and triage notes Were old charts reviewed (outside hosp., previous admission, EMS record, old EKG, old radiological studies, urgent care reports/EKG's, half-way records)? Report findings @ -No old charts were reviewed Differential Diagnosis (chest pain, altered mental status, abdominal pain women, abdominal pain men, vaginal bleeding, weakness, fever, dyspnea, syncope, headache, dizziness, GI bleed, back pain, seizure, CVA, palpatations, mental health, musculoskeletal)? @ -miscarriage, subchorionic hemorrhage, first trimester bleeding EKG interpreted by me (3pts min.). @ -not done X-rays interpreted by me (1pt min.). @ -not done CT interpreted by me (1pt min.). @ -not done U/S interpreted by me (1pt. min.). @ -yes, IUP What testing was considered but not performed or refused? (CT, X-rays, U/S, labs)? Why? @ -None What meds were considered but not given or refused? Why? @ -None Did you discuss the management of the patient with other professionals (professionals i.e. , PA, MULTIFOCAL BUTTON INSPECTOR, lab, RT, psych nurse, forensic social worker, test specialist, teacher, chief supply chain officer, community case manager)? Give summary @ -No Was smoking cessation discussed for >3mins.? @ -No Was critical care preformed (if so, how long)? @ -No Were there social determinants of health that impacted care today? How? (Homelessness, low income, unemployed, alcoholism, drug addiction, transportation, low edu. Level, literacy, decrease access to med. care, half-way, rehab)? @ -No Was there de-escalation of care discussed even if they declined (Discuss DNR or withdrawal of care, Hospice)? DNR status @ -No What co-morbidities impacted this encounter? (DM, HTN, Smoking, COPD, CAD, Cancer, CVA, ARF, Chemo, Hep., AIDS, mental health diagnosis, sleep apnea, morbid obesity)? @ -None Was patient admitted / discharged? Hospital course, mention meds given and r oute, prescriptions, significant lab abnormalities, going to OR and other pertinent info. @ -Upon arrival patient was placed into room 21. History and physical exam is performed. IV access was established laboratory studies were conducted. Patient does have an A+ blood type. Ultrasound demonstrates intrauterine dated approximately 12 weeks with a heart rate of 165. There is a small subchorionic hemorrhage. This is discussed with the patient. She'll be discharged home and needs to follow-up with her ASSISTANT FOOD SERVICE MANAGER. Return for any new or worsening symptoms. Patient was agreeable discharged home stable condition Undiagnosed new problem with uncertain prognosis? @ -yes Drug Therapy requiring intensive monitoring for toxicity (Heparin, Nitro, Insulin, Cardizem)? @ -No Were any procedures done? @ -No Diagnosis/symptom? @ -acute vaginal bleeding, threatened miscarriage, subchorionic hemorrhage Acute, or Chronic, or Acute on Chronic? @ -acute Uncomplicated (without systemic symptoms) or Complicated (systemic symptoms)? @ -complicated Side effects of treatment? @ -No Exacerbation, Progression, or Severe Exacerbation? @ -No Poses a threat to life or bodily function? How? (Chest pain, USA, MA, pneumonia, PE, COPD, DKA, ARF, appy, cholecystitis, CVA, Diverticulitis, Homicidal, Suicidal, threat to staff... and all critical care pts) @ -no - Lab Data Result diagrams: 07/12/22 16:03 07/12/22 16:03 Lab Results 07/12/22 07/12/22 07/12/22 Range/Units 16:03 16:03 16:03 WBC 9.1 (3.8-10.6) k/uL RBC 4.55 (3.80-5.40) m/uL Hgb 14.4 (11.4-16.0) gm/dL Hct 42.5 (34.0-46.0) % MCV 93.4 (80.0-100.0) fL MCH 31.6 (25.0-35.0) pg MCHC 33.8 (31.0-37.0) g/dL RDW 11.9 (11.5-15.5) % Plt Count 273 (150-450) k/uL MPV 7.7 Neutrophils % 72 % Lymphocytes % 21 % Monocytes % 3 % Eosinophils % 2 % Basophils % 0 % Neutrophils # 6.5 (1.3-7.7) k/uL Lymphocytes # 2.0 (1.0-4.8) k/uL Monocytes # 0.3 (0-1.0) k/uL Eosinophils # 0.2 (0-0.7) k/uL Basophils # 0.0 (0-0.2) k/uL Sodium 137 (137-145) mmol/L Potassium 4.0 (3.5-5.1) mmol/L Chloride 102 (98-107) mmol/L Carbon Dioxide 24 (22-30) mmol/L Anion Gap 11 mmol/L BUN 12 (7-17) mg/dL Creatinine 0.58 (0.52-1.04) mg/dL Est GFR (CKD-EPI)AfAm >90 (>60 ml/min/1.73 sqM) Est GFR (CKD-EPI)NonAf >90 (>60 ml/min/1.73 sqM) Glucose 89 (74-99) mg/dL Calcium 9.4 (8.4-10.2) mg/dL Total Bilirubin 0.4 (0.2-1.3) mg/dL AST 26 (14-36) U/L ALT 18 (4-34) U/L Alkaline Phosphatase 49 (38-126) U/L Total Protein 8.4 H (6.3-8.2) g/dL Albumin 4.6 (3.5-5.0) g/dL HCG, Quant 225164.0 mIU/mL Urine Color Urine Appearance (Clear) Urine pH (5.0-8.0) Ur Specific [place] (1.001-1.035) Urine Protein (Negative) Urine Glucose (UA) (Negative) Urine Ketones (Negative) Urine Blood (Negative) Urine Nitrite (Negative) Urine Bilirubin (Negative) Urine Urobilinogen (<2.0) mg/dL Ur Leukocyte Esterase (Negative) Blood Type A Positive Blood Type Recheck A Pos Bld Type Recheck Status No Antibody Screen NEGATIVE Spec Expiration Date 07/15/2022230207/12/22 Range/Units 16:34 WBC (3.8-10.6) k/uL RBC (3.80-5.40) m/uL Hgb (11.4-16.0) gm/dL Hct (34.0-46.0) % MCV (80.0-100.0) fL MCH (25.0-35.0) pg MCHC (31.0-37.0) g/dL RDW (11.5-15.5) % Plt Count (150-450) k/uL MPV Neutrophils % % Lymphocytes % % Monocytes % % Eosinophils % % Basophils % % Neutrophils # (1.3-7.7) k/uL Lymphocytes # (1.0-4.8) k/uL Monocytes # (0-1.0) k/uL Eosinophils # (0-0.7) k/uL Basophils # (0-0.2) k/uL Sodium (137-145) mmol/L Potassium (3.5-5.1) mmol/L Chloride (98-107) mmol/L Carbon Dioxide (22-30) mmol/L Anion Gap mmol/L BUN (7-17) mg/dL Creatinine (0.52-1.04) mg/dL Est GFR (CKD-EPI)AfAm (>60 ml/min/1.73 sqM) Est GFR (CKD-EPI)NonAf (>60 ml/min/1.73 sqM) Glucose (74-99) mg/dL Calcium (8.4-10.2) mg/dL Total Bilirubin (0.2-1.3) mg/dL AST (14-36) U/L ALT (4-34) U/L Alkaline Phosphatase (38-126) U/L Total Protein (6.3-8.2) g/dL Albumin (3.5-5.0) g/dL HCG, Quant mIU/mL Urine Color Light Yellow Urine Appearance Clear (Clear) Urine pH 6.5 (5.0-8.0) Ur Specific [place] 1.006 (1.001-1.035) Urine Protein Negative (Negative) Urine Glucose (UA) Negative (Negative) Urine Ketones Negative (Negative) Urine Blood Negative (Negative) Urine Nitrite Negative (Negative) Urine Bilirubin Negative (Negative) Urine Urobilinogen <2.0 (<2.0) mg/dL Ur Leukocyte Esterase Negative (Negative) Blood Type Blood Type Recheck Bld Type Recheck Status Antibody Screen Spec Expiration Date Disposition Clinical Impression: First trimester bleeding, Subchorionic bleed Disposition: HOME SELF-CARE Condition: Stable Instructions (If sedation given, give patient instructions): Subchorionic He morrhage (ED) Additional Instructions: You should be on pelvic rest until your bleeding stops - no tampons or intercourse. Follow-up with your ASSISTANT FOOD SERVICE MANAGER and return for any new or worsening symptoms Is patient prescribed a controlled substance at d/c from ED?: No Referrals: Osmar Adams DO [Primary Care Provider] - 1-2 days Ann Jeffries MD [STAFF PHYSICIAN] - 1-2 days Time of Disposition: 19:03
[2022-07-12 19:08] VITALS: BP 126/68; PULSE 68; RESP 16; TEMP 98
== END 2022-07-12 19:08 | disposition home or self-care (01) ==
LOC: EC 15:24
DX: O20.8 Other hemorrhage in early pregnancy (principal); O9A.511 Psychological abuse complicating pregnancy, first trimester; O99.331 Smoking (tobacco) complicating pregnancy, first trimester; I48.91 Unspecified atrial fibrillation; F41.9 Anxiety disorder, unspecified; F31.9 Bipolar disorder, unspecified; F12.90 Cannabis use, unspecified, uncomplicated; F17.290 Nicotine dependence, other tobacco product, uncomplicated; Z79.899 Other long term (current) drug therapy; Z91.040 Latex allergy status; Z88.5 Allergy status to narcotic agent; Z3A.12 12 weeks gestation of pregnancy
CPT/HCPCS: 36415; 76801; 80053; 81003; 84702; 85025; 86850; 86900; 86901; 99284

== ENCOUNTER 2022-10-21 11:51 | Outpatient (CLI) | payer OTHER ==
[2022-10-21 12:47] VITALS: BP 122/58; PULSE 95; RESP 18; TEMP 96.3
--- NOTE | 2022-10-23 15:32 | P.MSEPDOC ---
Presenting Problems - Arrival Data Date of Arrival on Unit: 10/21/22 Time of Arrival on Unit: 11:51 Mode of Transport: Ambulatory - Complaint OB-Reason for Admission/Chief Complaint: Decreased Movement Medical History - Information : 6 Para: 1 Term: 1 : 0 Abortions: Spontaneous or Elective: 4 Number of Living Children: 1 - Gestational Age Gestational Age by BAL (wks/days): 25 Weeks and 4 Days - History Complications: Hx. Substance Abuse Comment: hx use of heroin (3 years ago last) and methamphetamine (9 months ago last) Review of Systems - Review of Systems Constitutional: No problems Breast: No problems ENT: No problems Cardiovascular: No problems Respiratory: No problems Gastrointestinal: No problems Genitourinary: No problems Musculoskeletal: No problems Neurological: No problems Skin: No problems Vital Signs - Temperature Temperature: 96.3 F Temperature Source: Temporal Artery Scan - Pulse Right Pulse Oximetery Pulse Rate: 95 Pulse Assessment Method: Pulse Oximetry - Respirations Respiratory Rate: 18 Oxygen Delivery Method: Room Air O2 Sat by Pulse Oximetry: 97 - Blood Pressure Right Arm Blood Pressure: 122/58 Blood Pressure Mean: 79 Blood Pressure Source: Automatic Cuff Medical Screen Scoring - Uterine Contractions Frequency From (mins): 0 Frequency To (mins): 0 - Assessment - Baby A Baseline FHR: 125 Heart Rate - NICHD Category: Category I (Normal) Physician Notification - Physician Notified Physician Notified Date: 10/21/22 Physician Notified Time: 12:29 Physician: Ann Jeffries New Order Received: Yes (okay to D/C patient category 1 fhr and pt feeling movement after arrival) Maternal Triage Index - Maternal Triage Index Presenting for scheduled procedure w/no complaint: No - Stat/Priority 1 Stat Priority 1: No - Urgent/Priority 2 Urgent Priority 2: Yes Provider Notified: Ann Jeffries Provider Notified Time: 12:29 Criteria Met for Priority 2: C/O decreased movement Disposition - Disposition OB Disposition: Discharge to home Discharge Date: 10/21/22 Discharge Time: 12:35 I agree with the RN Medical Screening Exam: Yes Physician's MSE Comment: I have neither seen nor examined the patient Case reviewed; plan agreed upon as documented in EMR&OBIX.: Yes Diagnosis: RELATED CONDITIONS, UNSPECIFIED, SECOND TRIMESTER
== END 2022-10-21 12:35 | disposition home or self-care (01) ==
LOC: FBPOP 11:51
PROVIDERS: ATTEND Obstetrics & Gynecology
DX: O26.892 Other specified pregnancy related conditions, second trimester (principal); O47.02 False labor before 37 completed weeks of gestation, second trimester; O99.332 Smoking (tobacco) complicating pregnancy, second trimester; F17.200 Nicotine dependence, unspecified, uncomplicated; Z3A.25 25 weeks gestation of pregnancy; Z91.040 Latex allergy status; Z88.5 Allergy status to narcotic agent
CPT/HCPCS: 99213

== ENCOUNTER 2023-01-25 05:43 | Inpatient (IN) | payer OTHER ==
[2023-01-25] MEDS ORDERED: METHYLERGONOVINE 0.2 MG/ML 1 ML AMP IM PRN (06:16)
[2023-01-25] MEDS ORDERED: CARBOPROST TROMETHAMINE 250 MCG/ML 1 ML AMP IM PRN (06:16)
[2023-01-25] MEDS ORDERED: TRANEXAMIC 1,000 MG/100ML-NACL 1,000 MG in EMPTY BAG 1 BAG IV PRN (06:16)
[2023-01-25] MEDS ORDERED: OXYTOCIN 10 UNIT/ML 1 ML VIAL IM PRN (06:16)
[2023-01-25] MEDS ORDERED: miSOPROStoL 200 MCG TAB PO PRN (06:16)
[2023-01-25] MEDS ORDERED: LIDOCAINE 0.5% (PF) 5 MG/ML (50 ML SDV) SQ PRN (06:16)
[2023-01-25] MEDS ORDERED: TERBUTALINE 1 MG/ML VIAL SQ PRN (06:16)
[2023-01-25 06:21] LABS: Glucose,Whole Blood 120 mg/dL (70-110)
[2023-01-25] MEDS ORDERED: OXYTOCIN 30 UNITS/500 ML NS 30 UNIT in SALINE 1 500ML.BAG IV SCH (06:30)
[2023-01-25 06:39] LABS: Amphetamine Screen,Urine Not Detected (NotDetected); Barbiturate Screen,Urine Not Detected (NotDetected); Benzodiazepines Screen,Urine Not Detected (NotDetected); Cocaine Screen,Urine Not Detected (NotDetected); Methadone Screen, Urine Not Detected (NotDetected); Opiate Screen,Urine Not Detected (NotDetected); Oxycodone Screen, Urine Not Detected (NotDetected); Phencyclidine Screen,Urine Not Detected (NotDetected); Tricyclic Antidepressant,Urine Not Detected (NotDetected); Urn Cannabinoid Scrn Not Detected (NotDetected)
[2023-01-25] MEDS ORDERED: PENICILLIN G POTASSIUM 5,000,000 UNIT in DEXTROSE 5% IN WATER 100 ML IVPB ONE ×2 (07:00)
[2023-01-25 07:09] LABS: Basophils % (A) 0 %; Eosinophils # (A) 0.2 k/uL (0-0.7); Eosinophils % (A) 1 %; HCT 37.7 % (34.0-46.0); HGB 13.1 gm/dL (11.4-16.0); Lymphocytes % (A) 18 %; MCH 31.1 pg (25.0-35.0); MCHC 34.6 g/dL (31.0-37.0); Mean Platelet Volume 8.2; Monocytes # (A) 0.3 k/uL (0-1.0); Monocytes % (A) 3 %; Neutrophils # (A) 8.6 k/uL (1.3-7.7); Neutrophils % (A) 76 %; Platelet Count 294 k/uL (150-450); RDW 12.4 % (11.5-15.5); WBC 11.3 k/uL (3.8-10.6)
[2023-01-25] MEDS: LACTATED RINGERS 1,000 ML IV SCH ×3 (07:09→19:15)
--- NOTE | 2023-01-25 08:36 | P.HPOB ---
History of Present Illness H&P Date: 01/25/23 Chief Complaint: Medical induction of labor Ms. Jimenez is a 37 year old at 39 weeks and 2 days with EDC of 01/30/2023 (by 7 week ) who presents to labor and delivery for medical induction of labor for gestational diabetes on insulin. Her insulin regimen is 20 units of NPH qHS, 4u Humulin with breakfast and lunch, and 6 units of Humulin with dinner. The has also been complicated by advanced maternal age, bipolar disorder, a history of IV drug use (has been clean for approximately a year) not on maintenance medications. The patient herself has a history of A. Fib for which she has followed with Cardiology and she is not on any medications for this co ndition. The patient currently lives in a recovery home. The fetus measured in the 16%ile (5 lbs 9 ounces) at 36 weeks for growth. There has been reassuring surveillance throughout the third trimester. Finally, this will be a TOLAC. The patient understands the <1% change of uterine rupture and has been adequately counseled. Obstetric history: 1 FTCS 2/2 failed induction (AROM was not performed, however), 2 SABs, 1 ectopic (surgically managed) work-up: blood type A positive, antibody screen negative, rubella immune, VDRL non-reactive, HBsAg negative, HIV negative, HCV Ab reactive > negative RNA, gonorrhea negative, chlamydia negative, 1 hour and 3 hour GTTs abnormal, GBS positive. Past Medical History Past Medical History: Atrial Fibrillation Additional Past Medical History / Comment(s): no street drug since 2013 cocaine, heroin, opiates, marijuana History of Any Multi-Drug Resistant Organisms: MRSA Date of last positivie culture/infection: 11/2021 MDRO Source:: Right and Left Arms Past Surgical History: Appendectomy, Section, Cholecystectomy, Orthopedic Surgery Additional Past Surgical History / Comment(s): 2010 eptopic right fallopian tube removed. Past Anesthesia/Blood Transfusion Reactions: No Reported Reaction Smoking Status: Vaper - Past Family History Brother(s) Family Medical History: Unable to Obtain Father Family Medical History: Hypertension Medications and Allergies Home Medications Medication Instructions Recorded Confirmed Type Omeprazole [PriLOSEC] 20 mg PO BID 06/26/18 01/25/23 History RX: hydrOXYzine HCL 100 mg PO HS PRN 06/26/18 01/25/23 History lamoTRIgine [LaMICtal Xr] 150 mg PO BID 10/21/22 01/25/23 History Doxylamine Succinate [Unisom] 1 tab PO HS PRN 01/25/23 01/25/23 History Insulin Regular [humuLIN R] 4 units SQ AC-BID 01/25/23 01/25/23 History Insulin Regular [humuLIN R] 6 units SQ AC-SUPPER 01/25/23 01/25/23 History RX: Insulin NPH Human Isophane 20 units SQ HS 01/25/23 01/25/23 History [Novolin N] Allergies Allergy/AdvReac Type Severity Reaction Status Date / Time latex Allergy Rash/Hives Verified 10/21/22 12:09 narcotics Allergy Unknown Uncoded 10/21/22 12:09 Exam Intake and Output 01/24/23 01/25/23 01/25/23 22:59 06:59 14:59 Other: Weight 93.44 kg Focused physical exam is performed. This is a healthy-appearing in no apparent distress. Breathing is non-labored. Abdomen is gravid and non-tender. Cervical exam is fingertip dilated, 0% effacement, -3 station. Cooks catheter was placed with the use of a speculum. 60 cc of sterile saline were inserted into each cooks catheter balloon. Patient tolerated this procedure well. Extremeties non-tender and non-edematous. heart tones are Category I and tocometer is graphing irregular contractions. Results Result Diagrams: 01/25/23 06:55 Abnormal Lab Results - Last 24 Hours (Table) 01/25/23 01/25/23 Range/Units 06:20 06:55 WBC 11.3 H (3.8-10.6) k/uL Neutrophils # 8.6 H (1.3-7.7) k/uL POC Glucose (mg/dL) 120 H (70-110) mg/dL Assessment and Plan Assessment: 37 year old at 39 weeks and 2 days being medically induction for A2GDM Plan: Admit, NPO, mIVF, pitocin per protocol, cooks catheter for 6-12 hours, IV nubain or nitrous oxide prn pain while cooks catheter in place. TOLAC, pt counseled on <1% chance of uterine rupture and accepts these risks. Plan for AROM and internal monitors after cooks catheter removed. Continuous EFM and tocometer, close monitoring of patient. Time with Patient: Less than 30
[2023-01-25] MEDS ORDERED: NALBUPHINE 10 MG/ML (10 ML MDV) IV PRN (09:26)
[2023-01-25 10:19] LABS: Glucose,Whole Blood 112 mg/dL (70-110)
[2023-01-25] MEDS: PENICILLIN G POTASSIUM 2,500,000 UNIT in DEXTROSE 5% IN WATER 100 ML IVPB SCH ×6 (11:13→19:32)
[2023-01-25] MEDS ORDERED: fentaNYL (PF) 50 MCG/ML 5 ML AMP ONE (12:33)
[2023-01-25] MEDS ORDERED: SODIUM CHLORIDE 0.9% 250 ML BAG ONE (12:33)
[2023-01-25] MEDS ORDERED: ROPIVACAINE 5 MG/ML 30 ML VIAL ONE (12:33)
[2023-01-25 14:35] LABS: Glucose,Whole Blood 125 mg/dL (70-110)
[2023-01-25 18:26] LABS: Glucose,Whole Blood 105 mg/dL (70-110)
[2023-01-25] MEDS ORDERED: diphenhydrAMINE 50 MG/ML 1 ML VIAL IVP PRN ×2 (20:53)
[2023-01-25] MEDS ORDERED: HYDROCORTISONE 2.5% RECTAL CREAM 30 GM TUBE RECTAL PRN (20:53)
[2023-01-25] MEDS ORDERED: ACETAMINOPHEN TAB 325 MG TAB PO PRN (20:53)
[2023-01-25] MEDS ORDERED: ZOLPIDEM 5 MG TAB PO PRN (20:53)
[2023-01-25] MEDS ORDERED: BENZOCAINE/MENTHOL SPRAY 1 GM/SPRAY AEROSOL TOPICAL PRN (20:53)
[2023-01-25] MEDS ORDERED: diphenhydrAMINE 50 MG CAP PO PRN (20:53)
[2023-01-25] MEDS ORDERED: diphenhydrAMINE 25 MG CAP PO PRN (20:53)
[2023-01-25] MEDS ORDERED: LANOLIN CREAM 5 GM TUBE TOPICAL PRN (20:53)
[2023-01-25] MEDS ORDERED: SIMETHICONE 80 MG CHEWABLE PO PRN (20:53)
--- NOTE | 2023-01-25 20:53 | P.PROBDLV ---
Vaginal Delivery Note - . Vaginal Delivery Note: DATE OF SERVICE: 01/25/2023 PROCEDURE: Normal Vaginal Delivery ATTENDING: Dr. Ann Jeffries MD ESTIMATED BLOOD LOSS: 200 mL FINDINGS: VFI, Apgars 8/9. Weight 6 pounds and 5 ounces (2865 grams) PROCEDURE: Ms. Jimenez is a 37 year old at 39 weeks and 2 days presenting to labor and delivery for medical induction of labor for A2GDM. The has also been complicated by a history of IV substance abuse, bipolar disorder, and advanced maternal age. For further details, please review the admitting H&P. A cooks catheter was inserted and kept in place with low-dose oxytocin. The patient received epidural anesthesia per her request. The cooks catheter was removed and the patient was dilated to 4/70/-2 at which time AROM was undertaken at 1650 revealing clear amniotic fluid. The patient was completely dilated at 1950. She pushed very effectively. A viable female was delivered at 2026 without difficulty. The was placed on the maternal abdomen and bulb suctioned. The infant was noted to be spontaneously crying. Cord was clamped and cut after a 30-second delay. The infant was handed off to the pediatric team. Placenta was delivered whole with gentle cord traction at 2030. Oxytocin was started to facilitate uterine tone. Uterine fundus was found to be firm and below the umbilicus upon fundal massage. Thorough examination of the cervix, vagina, periurethral area, and perineum revealed a second degree laceration which was repaired with 2-0 Vicryl in the usual fashion. The patient is stable and allowed to begin the bonding process.
[2023-01-26] MEDS: IBUPROFEN 600 MG TAB PO PRN ×3 (01:13→21:31)
[2023-01-26] MEDS: LACTATED RINGERS 1,000 ML IV SCH (06:23)
[2023-01-26] MEDS: SENNOSIDES-DOCUSATE SODIUM 1 EACH TAB PO SCH ×2 (08:08→21:31)
--- NOTE | 2023-01-26 12:47 | P.PNOBGVD ---
Subjective - Subjective Principal diagnosis: s/p vaginal after Interval history: The patient is doing well this morning and had no acute events overnight. She has no complaints this morning. She reports minimal lochia, passing flatus, voiding without difficulty, ambulating, and eating/drinking without nausea or vomiting. She is her without difficulty. She denies chest pain, shortness of breathing, fevers, or chills overnight. She denies pain or swelling in the legs. She denies headaches, blurry vision, right upper quadrant pain. Patient reports: Reports appetite normal, Reports voiding normally, Reports pain well controlled, Reports ambulating normally [place]: doing well Objective - Latest Vital Signs Latest vital signs: Vital Signs Temp Pulse Resp BP Pulse Ox 01/26/23 09:00 98.0 F 66 17 116/78 97 01/26/23 04:00 98.2 F 69 16 118/71 97 01/26/23 00:00 74 16 116/67 96 01/25/23 22:34 83 16 106/56 01/25/23 22:04 90 16 120/59 99 01/25/23 21:34 82 113/55 01/25/23 21:19 81 16 106/58 98 01/25/23 21:03 85 16 109/53 98 01/25/23 20:49 88 16 114/55 99 01/25/23 20:34 97.5 F L 91 16 111/54 98 Intake and Output 01/25/23 01/26/23 01/26/23 22:59 06:59 14:59 Intake Total 231.9 Output Total 559 900 Balance -327.1 -900 Intake: Intake, IV Titration 231.9 Amount Oxytocin 30 Units/500 ml 231.9 Ns 30 unit In Saline 1 500ml.bag @ Per Protocol IV .Q0M [facility] Rx#:[id number] Output: Urine 200 900 Estimated Blood Loss 200 Output, Quantitative 159 Blood Loss Other: # Voids 1 1 - Exam Extremities: Present: normal Abdomen: Present: normal appearance, soft Uterus: Present: normal, firm - Labs Labs: Abnormal Lab Results - Last 24 Hours (Table) 01/25/23 Range/Units 14:34 POC Glucose (mg/dL) 125 H (70-110) mg/dL Assessment and Plan Assessment: 37 year old PPD#1 s/p Plan: 1. . Patient meeting all milestones appropriately. 2. A2GDM. Need 2 hour GTT at 6 weeks. 3. Viable female . Heart murmur heard by tap and die maker technician, await ECHO. Dispo: Anticipate discharge home tomorrow.
[2023-01-26] MEDS ORDERED: NICOTINE 21MG/24HR PATCH TRANSDERM SCH (18:15)
[2023-01-27 01:15] VITALS: RESP 16
--- NOTE | 2023-01-27 09:08 | P.DS ---
Providers Date of admission: 01/25/23 05:43 Expected date of discharge: 01/27/23 Attending physician: Ann Jeffries MD Primary care physician: Stated None Hospital Course: Ms. Jimenez is a 37 year old now who is now PPD#2 s/p a normal vaginal delivery after medical induction of labor for A2GDM. Induction, labor, and delivery were uncomplicated. The patient had a second degree laceration which was repaired. Her post- course was uncomplicated. The patient is doing well this morning and had no acute events overnight. She has no complaints this morning. She reports minimal lochia, passing flatus, voiding without difficulty, ambulating, and eating/drinking without nausea or vomiting. Infant doing well at bedside. An audible murmur was noted on exam for which she had an ECHO yesterday evening, these results are still pending. She denies chest pain, shortness of breathing, fevers, or chills overnight. She denies pain or swelling in the legs. restrictions are reviewed with the patient including pelvic rest for 6 weeks. The patient is encouraged to call the office if she experiences any heavy bleeding, foul-smelling discharge, breast complaints, or any if she has any other concerns. She will follow up in the office in 6 weeks for exam. She will take OTC Tylenol and requests a Motrin prescription. All questions are answered. Assessment: 37 year old now PPD#2 s/p normal vaginal delivery Patient Condition at Discharge: Good Plan - Discharge Summary Discharge Rx Participant: Yes New Discharge Prescriptions: New Ibuprofen [Motrin] 600 mg PO Q6HR PRN #30 tab PRN Reason: Mild Pain (Scale 1 To 3) No Action hydrOXYzine HCL 100 mg PO HS PRN PRN Reason: Insomnia Omeprazole [PriLOSEC] 20 mg PO BID lamoTRIgine [LaMICtal Xr] 150 mg PO BID Insulin Regular [humuLIN R] 4 units SQ AC-BID Doxylamine Succinate [Unisom] 1 tab PO HS PRN PRN Reason: Insomnia Insulin NPH Human Isophane [Novolin N] 20 units SQ HS Insulin Regular [humuLIN R] 6 units SQ AC-SUPPER Discharge Medication List Omeprazole [PriLOSEC] 20 mg PO BID 06/26/18 [History] hydrOXYzine HCL 100 mg PO HS PRN 06/26/18 [History] lamoTRIgine [LaMICtal Xr] 150 mg PO BID 10/21/22 [History] Doxylamine Succinate [Unisom] 1 tab PO HS PRN 01/25/23 [History] Insulin NPH Human Isophane [Novolin N] 20 units SQ HS 01/25/23 [History] Insulin Regular [humuLIN R] 4 units SQ AC-BID 01/25/23 [History] Insulin Regular [humuLIN R] 6 units SQ AC-SUPPER 01/25/23 [History] Ibuprofen [Motrin] 600 mg PO Q6HR PRN #30 tab 01/27/23 [Rx] Follow up Appointment(s)/Referral(s): Ann Jeffries MD [STAFF PHYSICIAN] - 6 Weeks Activity/Diet/Wound Care/Special Instructions: Instructions 1. Do not begin any exercise program for 3 weeks. 2. Do not resume sexual relations for 6 weeks or longer if uncomfortable. 3. You may take tub baths or showers at any time. 4. You may use tampons if desired after 6 weeks. 5. Keep any areas repaired with stitches clean and dry. 6. If you are not nursing, wear a good fitting, supportive bra during the day and limit fluid intake for at least 1 week to prevent breast engorgement. 7. Call the office, , within the next week to make appointment for your 6 week checkup if it has not already been made. 8. Report any of the following occurrences to the doctor promptly: a. Heavy, excessive bleeding b. Chills, fever c. Burning or frequency of urination d. Pain or redness and breasts if nursing e. Increasing pain or swelling of vulva (stitches). In addition to the above instructions, the following additional should be followed: 1. No heavy lifting or straining (exercising) until after 6 week checkup. 2. Keep abdominal incision clean and dry: You may wear a dressing if more comfortable. 3. Make office appointment for 2 weeks after delivery date. Discharge Disposition: HOME SELF-CARE
[2023-01-27 11:30] VITALS: BP 110/76; PULSE 74; TEMP 98.2
== END 2023-01-27 15:10 | disposition home or self-care (01) | DRG 560 ==
LOC: 4FBP 05:43
PROVIDERS: ADMIT Obstetrics & Gynecology; ATTEND Obstetrics & Gynecology
PROC: 0U7C7ZZ Dilation of Cervix, Via Natural or Artificial Opening (ICD-10-PCS; principal; 2023-01-25)
PROC: 10907ZC Drainage of Amniotic Fluid, Therapeutic from Products of Conception, Via Natural or Artificial Opening (ICD-10-PCS; 2023-01-25)
PROC: 10E0XZZ Delivery of Products of Conception, External Approach (ICD-10-PCS; 2023-01-25)
PROC: 3E033VJ Introduction of Other Hormone into Peripheral Vein, Percutaneous Approach (ICD-10-PCS; 2023-01-25)
PROC: 0KQM0ZZ Repair Perineum Muscle, Open Approach (ICD-10-PCS; 2023-01-25)
DX: O24.424 Gestational diabetes mellitus in childbirth, insulin controlled (principal); F31.9 Bipolar disorder, unspecified; I48.91 Unspecified atrial fibrillation; O34.219 Maternal care for unspecified type scar from previous cesarean delivery; O70.1 Second degree perineal laceration during delivery; O99.344 Other mental disorders complicating childbirth; O99.42 Diseases of the circulatory system complicating childbirth; Z37.0 Single live birth; Z3A.39 39 weeks gestation of pregnancy
CPT/HCPCS: 80306; 83036; 85025; 86850; 86900; 86901

== ENCOUNTER 2024-06-06 11:51 | Emergency (ER) | payer OTHER ==
[2024-06-06 11:55] VITALS: TEMP 97.9
--- NOTE | 2024-06-06 12:12 | ED ---
Female Urogenital HPI - General Chief complaint: Vaginal Bleeding Stated complaint: vaginal bleeding, 5 weeks preg Time Seen by Provider: 06/06/24 11:55 Source: patient, RN notes reviewed Mode of arrival: ambulatory Limitations: no limitations - History of Present Illness Initial comments: This is a 38-year-old female who presents to the emergency department for vaginal bleeding in . Patient is approximately 5 weeks and . States that she has had on and off cramping in the pelvis for the last couple of weeks, however a couple of hours prior to arrival she started having spotting and then an increase in the cramping. She did go to [facility] ago. States that her hCG was around 800. She had an ultrasound done as well, however it was too early for them to see anything. She has an upcoming appointment with her [employer] LITER[employer] PROFESSOR on 07/19. She does have a history of both miscarriages and an ectopic . She required surgery for the ectopic because she was 12 weeks along at that time. MD Complaint: vaginal bleeding, pelvic pain - Related Data Previous Rx's Medication Instructions Recorded Cyclobenzaprine [Flexeril] 5 mg PO TID PRN 5 Days #15 tablet 03/23/24 Ketorolac [Toradol] 10 mg PO Q6HR PRN #20 tab 03/23/24 Allergies Allergy/AdvReac Type Severity Reaction Status Date / Time latex Allergy Rash/Hives Verified 06/06/24 11:55 narcotics AdvReac see comment Uncoded 06/06/24 11:55 Review of Systems ROS Statement: Those systems with pertinent positive or pertinent negative responses have been documented in the HPI. ROS Other: All systems not noted in ROS Statement are negative. Past Medical History Past Medical History: Atrial Fibrillation Additional Past Medical History / Comment(s): no street drug since 2013 cocaine, heroin 2019, opiates, marijuana, meth 2021 History of Any Multi-Drug Resistant Organisms: MRSA Date of last positivie culture/infection: 11/2021 MDRO Source:: Right and Left Arms Past Surgical History: Appendectomy, Section, Cholecystectomy, Orthopedic Surgery Additional Past Surgical History / Comment(s): 2009 eptopic right fallopian tube removed. Past Anesthesia/Blood Transfusion Reactions: No Reported Reaction Past Psychological History: Anxiety, Bipolar, Depression Smoking Status: Vaper Past Alcohol Use History: None Reported Past Drug Use History: Methamphetamine, Opiates - Past Family History Brother(s) Family Medical History: Unable to Obtain Father Family Medical History: Hypertension General Exam Limitations: no limitations General appearance: alert, in no apparent distress Head exam: Present: atraumatic, normocephalic, normal inspection Respiratory exam: Present: normal lung sounds bilaterally. Absent: respiratory distress, wheezes, rales, rhonchi, stridor Cardiovascular Exam: Present: regular rate, normal rhythm Neurological exam: Present: alert, oriented X3, CN II-XII intact Psychiatric exam: Present: normal affect, normal mood Skin exam: Present: warm, dry, intact, normal color. Absent: rash Course Vital Signs 06/06/24 06/06/24 11:53 14:14 Temperature 97.9 F Pulse Rate 61 75 Respiratory 18 16 Rate Blood Pressure 110/70 114/54 O2 Sat by Pulse 100 100 Oximetry Medical Decision Making - Medical Decision Making This is a 38-year-old female who presents to the emergency department for pelvic pain and vaginal bleeding. Was pt. sent in by a medical professional or institution? @ -No Did you speak to anyone other than the patient for history? @ -No Did you review nursing and triage notes? @ -Yes, and I agree, it is accurate with regards to the patient's symptoms. Were old charts reviewed? @ -No Differential Diagnosis? @ -Differential Vaginal Bleeding: Spontaneous , threatened , molar , ectopic , incompetent cervix, placenta previa, uterine rupture, dysfunctional uterine bleeding, hemorrhage, uterine fibroids, malignancy, coagulopathy, PID, cervicitis, adenomyosis, vaginal trauma, this is not meant to be an all- inclusive list. EKG interpreted by me (3pts min.)? @ -Not obtained X-rays interpreted by me (1pt min.)? @ -Not obtained CT interpreted by me (1pt min.)? @ -Not obtained U/S interpreted by me (1pt. min.)? @ -Obstetrics ultrasound obtained. My interpretation identifies no evidence of an IUP. What testing was considered but not performed? (CT, X-rays, U/S, labs)? Why? @ -None What meds were considered but not given? Why? @ -None Did you discuss the management of the patient with other professionals? @ -Yes, Dr. Roque, [employer] PROFESSOR, who advised a repeat beta-hCG in 2 days and they will contact the patient in 3 days with how to proceed. Did you reconcile home meds? @ -No Was smoking cessation discussed for >3mins.? @ -No Was critical care preformed (if so, how long)? @ -No Were there social determinants of health that impacted care today? How? (Homelessness, low income, unemployed, alcoholism, drug addiction, transportation, low edu. Level, literacy, decrease access to med. care, long term, rehab)? @ -No Was there de-escalation of care discussed even if they declined? (Discuss DNR or withdrawal of care, Hospice)? @ -No What co-morbidities impacted this encounter? (DM, HTN, Smoking, COPD, CAD, Cancer, CVA, Hep., AIDS, mental health diagnosis, sleep apnea, morbid obesity)? @ - Was patient admitted / discharged? @ -Discharged. Lab work demonstrates a beta-hCG of 5113 and is otherwise unremarkable. Patient is Rh+ and no RhoGAM is indicated. Urinalysis demonstrates blood but is negative for signs of infection. OB ultrasound obtained demonstrating a complex vascular area in the right adnexa concerning for ectopic given no evidence for an intrauterine gestation. Case discussed with Dr. Roque, [employer] PROFESSOR. She advised having the patient recheck her beta-hCG in 48 hours and they will contact the patient in 3 days from their office regarding how to move forward. This was discussed with the patient who is in agreement with this plan. Lab order provided to have her beta hCG count repeated in 48 hours. Patient's contact information was provided to [facility] and I advised that if she does not hear from them Wednesday, she should call herself. Advised Tylenol as needed for pain relief. Strict return parameters were discussed and we also discussed ectopic precautions. Patient discharged home in stable condition. Case discussed with ED attending Dr. Lo. Return precautions reviewed in depth, the patient is instructed to return to the emergency department with any new, worsening, or concerning symptoms. Patient verbalized understanding. Undiagnosed new problem with uncertain prognosis? @ -None Drug Therapy requiring intensive monitoring for toxicity (Heparin, Nitro, Insulin, Cardizem)? @ -None Were any procedures done? @ -None Diagnosis/symptom? @ -Pelvic pain in , vaginal bleeding in Acute, or Chronic, or Acute on Chronic? @ -Acute Uncomplicated (without systemic symptoms) or Complicated (systemic symptoms)? @ -Uncomplicated Side effects of treatment? @ -None Exacerbation, Progression, or Severe Exacerbation] @ -Not applicable Poses a threat to life or bodily function? @ -Unlikely - Lab Data Result diagrams: 06/06/24 12:06 06/06/24 12:06 Lab Results 06/06/24 06/06/24 06/06/24 Range/Units 12:06 12:06 12:06 WBC 9.24 (4.50-10.00) 10*3/uL RBC 3.90 L (4.10-5.20) 10*6/uL Hgb 12.8 (12.0-15.0) g/dL Hct 35.6 L (37.2-46.3) % MCV 91.3 (80.0-97.0) fL MCH 32.8 H (27.0-32.0) pg MCHC 36.0 (32.0-37.0) g/dL Plt Count 269 (140-440) 10*3/uL MPV 10.2 (9.5-12.2) fL Immature Gran % (Auto) 0.2 % Neutrophils % 66.9 % Lymphocytes % 27.5 % Monocytes % 4.0 % Eosinophils % 1.0 % Basophils % 0.4 % Immature Gran # 0.02 (0.00-0.04) 10*3/uL Neutrophils # 6.18 (1.80-7.70) 10*3/uL Lymphocytes # 2.54 (0.90-5.00) 10*3/uL Monocytes # 0.37 (0.20-1.00) 10*3/uL Eosinophils # 0.09 (0.04-0.35) 10*3/uL Basophils # 0.04 (0.00-0.10) 10*3/uL Sodium 138 (137-145) mmol/L Potassium 4.0 (3.5-5.1) mmol/L Chloride 106 (98-107) mmol/L Carbon Dioxide 20 L (22-30) mmol/L Anion Gap 12 mmol/L BUN 14 (7-17) mg/dL Creatinine 0.74 (0.52-1.04) mg/dL Est GFR (CKD-EPI)AfAm >90 (>60 ml/min/1.73 sqM) Est GFR (CKD-EPI)NonAf >90 (>60 ml/min/1.73 sqM) Glucose 105 H (74-99) mg/dL Calcium 9.4 (8.4-10.2) mg/dL Total Bilirubin 0.7 (0.2-1.3) mg/dL AST 34 (14-36) U/L ALT 17 (4-34) U/L Alkaline Phosphatase 59 (38-126) U/L Total Protein 7.9 (6.3-8.2) g/dL Albumin 4.9 (3.5-5.0) g/dL HCG, Quant 5113.3 mIU/mL Urine Color Light Yellow Urine Appearance Clear (Clear) Urine pH 5.5 (5.0-8.0) Ur Specific [place] 1.022 (1.001-1.035) Urine Protein Negative (Negative) Urine Glucose (UA) Negative (Negative) Urine Ketones Negative (Negative) Urine Blood Moderate H (Negative) Urine Nitrite Negative (Negative) Urine Bilirubin Negative (Negative) Urine Urobilinogen <2.0 (<2.0) mg/dL Ur Leukocyte Esterase Small H (Negative) Urine RBC 6 H (0-5) /hpf Urine WBC 4 (0-5) /hpf Ur Squamous Epith Cells 5 H (0-4) /hpf Urine Mucus Rare H (None) /hpf Blood Type Blood Type Recheck Bld Type Recheck Status 06/06/24 Range/Units 12:25 WBC (4.50-10.00) 10*3/uL RBC (4.10-5.20) 10*6/uL Hgb (12.0-15.0) g/dL Hct (37.2-46.3) % MCV (80.0-97.0) fL MCH (27.0-32.0) pg MCHC (32.0-37.0) g/dL Plt Count (140-440) 10*3/uL MPV (9.5-12.2) fL Immature Gran % (Auto) % Neutrophils % % Lymphocytes % % Monocytes % % Eosinophils % % Basophils % % Immature Gran # (0.00-0.04) 10*3/uL Neutrophils # (1.80-7.70) 10*3/uL Lymphocytes # (0.90-5.00) 10*3/uL Monocytes # (0.20-1.00) 10*3/uL Eosinophils # (0.04-0.35) 10*3/uL Basophils # (0.00-0.10) 10*3/uL Sodium (137-145) mmol/L Potassium (3.5-5.1) mmol/L Chloride (98-107) mmol/L Carbon Dioxide (22-30) mmol/L Anion Gap mmol/L BUN (7-17) mg/dL Creatinine (0.52-1.04) mg/dL Est GFR (CKD-EPI)AfAm (>60 ml/min/1.73 sqM) Est GFR (CKD-EPI)NonAf (>60 ml/min/1.73 sqM) Glucose (74-99) mg/dL Calcium (8.4-10.2) mg/dL Total Bilirubin (0.2-1.3) mg/dL AST (14-36) U/L ALT (4-34) U/L Alkaline Phosphatase (38-126) U/L Total Protein (6.3-8.2) g/dL Albumin (3.5-5.0) g/dL HCG, Quant mIU/mL Urine Color Urine Appearance (Clear) Urine pH (5.0-8.0) Ur Specific [place] (1.001-1.035) Urine Protein (Negative) Urine Glucose (UA) (Negative) Urine Ketones (Negative) Urine Blood (Negative) Urine Nitrite (Negative) Urine Bilirubin (Negative) Urine Urobilinogen (<2.0) mg/dL Ur Leukocyte Esterase (Negative) Urine RBC (0-5) /hpf Urine WBC (0-5) /hpf Ur Squamous Epith Cells (0-4) /hpf Urine Mucus (None) /hpf Blood Type A Positive Blood Type Recheck A Pos Bld Type Recheck Status No - Radiology Data Radiology results: report reviewed, image reviewed Disposition Clinical Impression: Pelvic pain, Vaginal bleeding in Disposition: HOME SELF-CARE Additional Instructions: Return to the emergency department with any new, worsening, or concerning symptoms. Take the lab slip to have your beta hCG count repeated on , 2 days from now. [facility] MED[employer] LITERATURE PROFESSOR will call you on Wednesday. If you do not hear from them, make sure you reach out to them before the end of the day. Take Tylenol as needed for pain relief. Avoid intercourse, heavy lifting, and excess physical activity for the meantime. Is patient prescribed a controlled substance at d/c from ED?: No Referrals: Osmar Adams DO [Primary Care Provider] - 1-2 days Reema Roque DO [Doctor of Osteopathic Medicine] - 1-2 days Time of Disposition: 14:31
[2024-06-06 12:41] LABS: Appearance,Urine Clear (Clear); Basophils # (A) 0.04 10*3/uL (0.00-0.10); Basophils % (A) 0.4 %; Bilirubin,Urine Negative (Negative); Blood,Urine Moderate (Negative); Color,Urine Light Yellow; Eosinophils # (A) 0.09 10*3/uL (0.04-0.35); Glucose,Urine (UA) Negative (Negative); HCT 35.6 % (37.2-46.3); HGB 12.8 g/dL (12.0-15.0); Ketones,Urine Negative (Negative); Leukocyte Esterase,Urine Small (Negative); Lymphocytes # (A) 2.54 10*3/uL (0.90-5.00); Lymphocytes % (A) 27.5 %; MCH 32.8 pg (27.0-32.0); MCV 91.3 fL (80.0-97.0); Mean Platelet Volume 10.2 fL (9.5-12.2); Monocytes # (A) 0.37 10*3/uL (0.20-1.00); Mucus,Urine Rare /hpf; Neutrophils # (A) 6.18 10*3/uL (1.80-7.70); Neutrophils % (A) 66.9 %; Nitrite,Urine Negative (Negative); PH, Urine 5.5 (5.0-8.0); Platelet Count 269 10*3/uL (140-440); Protein,Urine Negative (Negative); RBC,Urine 6 /hpf (0-5); RDW 11.4 % (11.5-14.5); Specific Gravity,Urine 1.022 (1.001-1.035); Squamous Epithelial Cell,Urine 5 /hpf (0-4); Urobilinogen,Urine <2.0 mg/dL (<2.0); WBC 9.24 10*3/uL (4.50-10.00); WBC,Urine 4 /hpf (0-5)
[2024-06-06 12:56] LABS: ALT 17 U/L (4-34); African American GFR (CKD) >90 (>60 ml/min/1.73 sqM); Albumin 4.9 g/dL (3.5-5.0); Anion Gap 12 mmol/L; Blood Urea Nitrogen 14 mg/dL (7-17); Calcium 9.4 mg/dL (8.4-10.2); Carbon Dioxide 20 mmol/L (22-30); Chloride 106 mmol/L (98-107); Glucose 105 mg/dL (74-99); Non-African American GFR(CKD) >90 (>60 ml/min/1.73 sqM); Sodium 138 mmol/L (137-145); Total Bilirubin 0.7 mg/dL (0.2-1.3); Total Protein 7.9 g/dL (6.3-8.2)
[2024-06-06 12:59] LABS: AST 34 U/L (14-36); Alkaline Phosphatase 59 U/L (38-126)
[2024-06-06 13:13] LABS: HCG,Quantitative Serum 5113.3 mIU/mL
--- NOTE | 2024-06-06 13:52 | US ---
EXAMINATION TYPE: Transabdominal DATE OF EXAM: 06/06/2024 1:09 PM COMPARISON: NONE CLINICAL INDICATION: Female, 38 years old with history of Pelvic pain and bleeding in ; TECHNIQUE: Transvaginal (TV) and Transabdominal (TA) with grayscale and color Doppler imaging includi ng first trimester . FINDINGS: EXAM MEASUREMENTS: GESTATIONAL AGE / DATING Physician Established: Not yet established Dates by LMP: (6 weeks/3 days) EDC: 01/27/2025 Dates by First Scan: No previous this is first scan Dates by Current Scan for: No IUP seen at this time MATERNAL ANATOMY Uterus: 8.6 x 4.0 x 5.4cm, 1.5 x 1.2 x 1.8cm exophytic hypoechoic area anterior uterus Right Ovary: 2.3 x 1.7 x 1.6cm Left Ovary: 2.8 x 1.6 x 2.4cm, 1.8 x 1.5 x 1.9 cm hypoechoic area Post CDS / Adnexa: right adnexa - 1.8 x 1.4 x 1.6 cm cystic area and 2.9 x 1.9 x 2.2cm complex vascul ar area seen Presence of free fluid: no GESTATION / SURVEY IUP: No IUP seen at this time Date of LMP: 04/22/2024 Beta HcG (if available): 5113.3 IMPRESSION: Complex vascular area in the right adnexa concerning for ectopic given no evidence for intr auterine gestation and positive beta hCG. DOPE SPRAYER consultation recommended. [facility], , 06/06/2024 1:50 PM
[2024-06-06 14:15] VITALS: BP 114/54; PULSE 75; RESP 16
== END 2024-06-06 14:41 | disposition home or self-care (01) ==
LOC: EC 11:51
DX: O20.9 Hemorrhage in early pregnancy, unspecified (principal); O26.891 Other specified pregnancy related conditions, first trimester; R10.2 Pelvic and perineal pain; O99.331 Smoking (tobacco) complicating pregnancy, first trimester; F17.290 Nicotine dependence, other tobacco product, uncomplicated; Z88.5 Allergy status to narcotic agent; Z91.040 Latex allergy status; Z3A.01 Less than 8 weeks gestation of pregnancy
CPT/HCPCS: 36415; 76801; 76817; 80053; 81001; 84702; 85025; 86900; 86901; 99284

== ENCOUNTER 2024-06-07 15:42 | Emergency (ER) | payer OTHER ==
[2024-06-07 15:58] VITALS: RESP 18
--- NOTE | 2024-06-07 16:53 | ED ---
Female Urogenital HPI - General Chief complaint: Vaginal Bleeding Stated complaint: vaginal bleeding Time Seen by Provider: 06/07/24 16:51 Source: patient Mode of arrival: ambulatory Limitations: no limitations - History of Present Illness Initial comments: 38-year-old female presenting with chief complaint of worsening pelvic pain and vaginal bleeding. Patient was seen in our ER yesterday, on ultrasound there was a complex structure seen in the right adnexa that could indicate ectopic . Patient was instructed to follow-up with KELLER MACHINE OPERATOR Dr. Roque in the office would contact the patient on Wednesday after she received her repeat beta- hCG. She comes in today because she states that she is having significantly worsening pain and bleeding. Pain is mainly centralized over the pelvis, however she does have a "twinge" of pain on the right side. She does have history of ectopic and miscarriage. No dizziness or syncope. No fever. - Related Data Previous Rx's Medication Instructions Recorded Cyclobenzaprine [Flexeril] 5 mg PO TID PRN 5 Days #15 tablet 03/23/24 Ketorolac [Toradol] 10 mg PO Q6HR PRN #20 tab 03/23/24 Allergies Allergy/AdvReac Type Severity Reaction Status Date / Time latex Allergy Rash/Hives Verified 06/06/24 11:55 narcotics AdvReac see comment Uncoded 06/06/24 11:55 Review of Systems ROS Statement: Those systems with pertinent positive or pertinent negative responses have been documented in the HPI. ROS Other: All systems not noted in ROS Statement are negative. Past Medical History Past Medical History: Atrial Fibrillation Additional Past Medical History / Comment(s): no street drug since 2013 cocaine, heroin 2019, opiates, marijuana, meth 2021 History of Any Multi-Drug Resistant Organisms: MRSA Date of last positivie culture/infection: 11/2021 MDRO Source:: Right and Left Arms Past Surgical History: Appendectomy, Section, Cholecystectomy, Orthopedic Surgery Additional Past Surgical History / Comment(s): 2010 eptopic right fal lopian tube removed. Past Anesthesia/Blood Transfusion Reactions: No Reported Reaction Past Psychological History: Anxiety, Bipolar, Depression Smoking Status: Vaper Past Alcohol Use History: None Reported Past Drug Use History: Methamphetamine, Opiates - Past Family History Brother(s) Family Medical History: Unable to Obtain Father Family Medical History: Hypertension General Exam - General Exam Comments Initial Comments: Visual Physical Exam Vital signs reviewed General: Well-appearing, nontoxic, no acute distress. Head: Normocephalic, atraumatic Eyes: PERRLA, EOMI ENT: Airway patent Chest: Nonlabored breathing Skin: No visual rash, normal skin tone Neuro: Alert and oriented 3 Musculoskeletal: No gross abnormalities Limitations: no limitations General appearance: alert, in no apparent distress Head exam: Present: atraumatic, normocephalic, normal inspection Eye exam: Present: normal appearance, EOMI Respiratory exam: Present: normal lung sounds bilaterally. Absent: respiratory distress, wheezes, rales, rhonchi, stridor Cardiovascular Exam: Present: regular rate, normal rhythm, normal heart sounds. Absent: systolic murmur, diastolic murmur, rubs, gallop, clicks GI/Abdominal exam: Present: soft. Absent: distended, tenderness, guarding, rebound, rigid External exam: Present: normal external exam Speculum exam: Present: vaginal bleeding (Minimal vaginal bleeding, cleared using 2 mendes swabs) By manual exam: Present: normal by manual exam Neurological exam: Present: alert, oriented X3 Psychiatric exam: Present: normal affect, normal mood Skin exam: Present: warm, dry, normal color Course Vital Signs 06/07/24 06/07/24 06/07/24 15:56 18:30 20:11 Temperature 98.2 F 98.3 F Pulse Rate 66 70 76 Respiratory 18 18 18 Rate Blood Pressure 112/75 110/68 113/67 O2 Sat by Pulse 100 100 100 Oximetry Medical Decision Making - Medical Decision Making I performed the quick note portion of this visit, electronically signed Radha Reich PA-C Was pt. sent in by a medical professional or institution ([facility], HEALTH AND FITNESS PROFESSOR, urgent care, hospital, or custodial...) When possible be specific @ -No Did you speak to anyone other than the patient for history (EMS, parent, family, police, friend...)? What history was obtained from this source @ -No Did you review nursing and triage notes (agree or disagree)? Why? @ -I reviewed and agree with nursing and triage notes Were old charts reviewed (outside hosp., previous admission, EMS record, old EKG, old radiological studies, urgent care reports/EKG's, custodial records)? Report findings @ -Reviewed yesterday's visit Differential Diagnosis (chest pain, altered mental status, abdominal pain women, abdominal pain men, vaginal bleeding, weakness, fever, dyspnea, syncope, headache, dizziness, GI bleed, back pain, seizure, CVA, palpatations, mental health, musculoskeletal)? @ -[facility] Differential Vaginal Bleeding: Spontaneous , threatened , molar , ectopic , bloody show, incompetent cervix, abruptioplacenta, placenta previa, uterine rupture, dysfunctional uterine bleeding, hemorrhage, uterine fibroids. ... This is not meant to be an all-inclusive list EKG interpreted by me (3pts min.). @ -As above X-rays interpreted by me (1pt min.). @ -None done CT interpreted by me (1pt min.). @ -None done U/S interpreted by me (1pt. min.). @ -Ultrasound shows complex area adjacent to the right ovary concerning for ectopic given absence of intrauterine gestational sac identified. Surgical evaluation recommended. Clinical correlation recommended. Findings are not significantly changed from prior What testing was considered but not performed or refused? (CT, X-rays, U/S, labs)? Why? @ -None What meds were considered but not given or refused? Why? @ -None Did you discuss the management of the patient with other professionals (professionals i.e. , PA, HEALTH AND FITNESS PROFESSOR, lab, RT, psych nurse, perinatal social worker, shoe sewing machine operator and tender, teacher, fare enforcement officer, family independence case manager)? Give summary @ -I spoke with KELLER MACHINE OPERATOR on-call Dr. Jimenes. He was also made aware of this patient by Dr. Roque. We discussed the patient's labs and ultrasound findings. He requested that the patient receive her hCG quantitative tomorrow which will be forwarded to the office and they will contact the patient on Wednesday with further instructions. Does not advise admission at this time given that patient's pain is under control this is early gestational age Was smoking cessation discussed for >3mins.? @ -No Was critical care preformed (if so, how long)? @ -No Were there social determinants of health that impacted care today? How? (Homelessness, low income, unemployed, alcoholism, drug addiction, transportation, low edu. Level, literacy, decrease access to med. care, snf, rehab)? @ -No Was there de-escalation of care discussed even if they declined (Discuss DNR or withdrawal of care, Hospice)? DNR status @ -No What co-morbidities impacted this encounter? (DM, HTN, Smoking, COPD, CAD, Cancer, CVA, ARF, Chemo, Hep., AIDS, mental health diagnosis, sleep apnea, morbid obesity)? @ -None Was patient admitted / discharged? Hospital course, mention meds given and route, prescriptions, significant lab abnormalities, going to OR and other pertinent info. @ -38-year-old female approximately 5 weeks presented with chief complaint of vaginal bleeding and cramping. Patient was seen here yesterday for cramping and spotting, comes back today because symptoms have worsened. She did have an ultrasound yesterday which showed a complex structure adjacent to the right ovary which could represent an ectopic given that there was no IUP seen. Today the patient is hemodynamically stable. Hemoglobin is stable at 12.9. Her hCG today is 5343.5, yesterday visit was 5113.3. Ultrasound shows no major change from yesterday's, the structure adjacent to the right ovary which may represent ectopic is still present. I contacted KELLER MACHINE OPERATOR on-call Dr. Jimenes. He states that he needs to see 1 more hCG reading from the patient in order to make a final decision on treatment. Patient has a lab order for beta-hCG quantitative outpatient tomorrow, I confirmed with the patient that she has this order. Her hCG will be sent to [facility] KELLER MACHINE OPERATOR and they will contact her on Wednesday with results and further instructions. Stressed to the patient the importance of obtaining this repeat lab and following up closely with KELLER MACHINE OPERATOR. I provided her with strict return parameters that include sudden increase in pain, syncope or dizziness, or sudden increase in bleeding. I instructed her to call [facility] KELLER MACHINE OPERATOR on Wednesday if she does not hear from them and provided her with their phone number. Report back to ER with any new or worsening symptoms. Discussed return parameters and answered all questions. Patient conveyed verbal understanding and agreed to the plan. I discussed this case in detail with my attending Dr. Simpson Undiagnosed new problem with uncertain prognosis? @ -No Drug Therapy requiring intensive monitoring for toxicity (Heparin, Nitro, Insulin, Cardizem)? @ -No Were any procedures done? @ -No Diagnosis/symptom? @ -Vaginal bleeding in Acute, or Chronic, or Acute on Chronic? @ -Acute Uncomplicated (without systemic symptoms) or Complicated (systemic symptoms)? @ -Uncomplicated Side effects of treatment? @ -No Exacerbation, Progression, or Severe Exacerbation? @ -No - Lab Data Result diagrams: 06/07/24 17:56 06/07/24 17:56 Lab Results 06/07/24 06/07/24 06/07/24 Range/Units 17:44 17:55 17:56 WBC 11.31 H (4.50-10.00) 10*3/uL RBC 4.00 L (4.10-5.20) 10*6/uL Hgb 12.9 (12.0-15.0) g/dL Hct 37.2 (37.2-46.3) % MCV 93.0 (80.0-97.0) fL MCH 32.3 H (27.0-32.0) pg MCHC 34.7 (32.0-37.0) g/dL Plt Count 277 (140-440) 10*3/uL MPV 10.1 (9.5-12.2) fL Immature Gran % (Auto) 0.4 % Neutrophils % 68.3 % Lymphocytes % 27.1 % Monocytes % 3.1 % Eosinophils % 0.7 % Basophils % 0.4 % Immature Gran # 0.04 (0.00-0.04) 10*3/uL Neutrophils # 7.74 H (1.80-7.70) 10*3/uL Lymphocytes # 3.06 (0.90-5.00) 10*3/uL Monocytes # 0.35 (0.20-1.00) 10*3/uL Eosinophils # 0.08 (0.04-0.35) 10*3/uL Basophils # 0.04 (0.00-0.10) 10*3/uL PT (10.0-12.5) sec INR (<1.2) APTT (22.0-30.0) sec Sodium (137-145) mmol/L Potassium (3.5-5.1) mmol/L Chloride (98-107) mmol/L Carbon Dioxide (22-30) mmol/L Anion Gap mmol/L BUN (7-17) mg/dL Creatinine (0.52-1.04) mg/dL Est GFR (CKD-EPI)AfAm (>60 ml/min/1.73 sqM) Est GFR (CKD-EPI)NonAf (>60 ml/min/1.73 sqM) Glucose (74-99) mg/dL Calcium (8.4-10.2) mg/dL Total Bilirubin (0.2-1.3) mg/dL AST (14-36) U/L ALT (4-34) U/L Alkaline Phosphatase (38-126) U/L Total Protein (6.3-8.2) g/dL Albumin (3.5-5.0) g/dL HCG, Quant mIU/mL Urine Color Colorless Urine Appearance Clear (Clear) Urine pH 7.5 (5.0-8.0) Ur Specific Roark 1.010 (1.001-1.035) Urine Protein Negative (Negative) Urine Glucose (UA) Negative (Negative) Urine Ketones Negative (Negative) Urine Blood Moderate H (Negative) Urine Nitrite Negative (Negative) Urine Bilirubin Negative (Negative) Urine Urobilinogen <2.0 (<2.0) mg/dL Ur Leukocyte Esterase Moderate H (Negative) Urine RBC 26 H (0-5) /hpf Urine WBC 24 H (0-5) /hpf Ur Squamous Epith Cells <1 (0-4) /hpf Blood Type A Positive Blood Type Recheck A Pos Bld Type Recheck Status [facility] ONLY 06/07/24 06/07/24 Range/Units 17:56 17:56 WBC (4.50-10.00) 10*3/uL RBC (4.10-5.20) 10*6/uL Hgb (12.0-15.0) g/dL Hct (37.2-46.3) % MCV (80.0-97.0) fL MCH (27.0-32.0) pg MCHC (32.0-37.0) g/dL Plt Count (140-440) 10*3/uL MPV (9.5-12.2) fL Immature Gran % (Auto) % Neutrophils % % Lymphocytes % % Monocytes % % Eosinophils % % Basophils % % Immature Gran # (0.00-0.04) 10*3/uL Neutrophils # (1.80-7.70) 10*3/uL Lymphocytes # (0.90-5.00) 10*3/uL Monocytes # (0.20-1.00) 10*3/uL Eosinophils # (0.04-0.35) 10*3/uL Basophils # (0.00-0.10) 10*3/uL PT 10.6 (10.0-12.5) sec INR 1.0 (<1.2) APTT 23.1 (22.0-30.0) sec Sodium 139 (137-145) mmol/L Potassium 3.8 (3.5-5.1) mmol/L Chloride 105 (98-107) mmol/L Carbon Dioxide 25 (22-30) mmol/L Anion Gap 9 mmol/L BUN 11 (7-17) mg/dL Creatinine 0.70 (0.52-1.04) mg/dL Est GFR (CKD-EPI)AfAm >90 (>60 ml/min/1.73 sqM) Est GFR (CKD-EPI)NonAf >90 (>60 ml/min/1.73 sqM) Glucose 95 (74-99) mg/dL Calcium 9.6 (8.4-10.2) mg/dL Total Bilirubin 0.6 (0.2-1.3) mg/dL AST 27 (14-36) U/L ALT 16 (4-34) U/L Alkaline Phosphatase 46 (38-126) U/L Total Protein 8.0 (6.3-8.2) g/dL Albumin 4.8 (3.5-5.0) g/dL HCG, Quant 5343.5 mIU/mL Urine Color Urine Appearance (Clear) Urine pH (5.0-8.0) Ur Specific Roark (1.001-1.035) Urine Protein (Negative) Urine Glucose (UA) (Negative) Urine Ketones (Negative) Urine Blood (Negative) Urine Nitrite (Negative) Urine Bilirubin (Negative) Urine Urobilinogen (<2.0) mg/dL Ur Leukocyte Esterase (Negative) Urine RBC (0-5) /hpf Urine WBC (0-5) /hpf Ur Squamous Epith Cells (0-4) /hpf Blood Type Blood Type Recheck Bld Type Recheck Status Disposition Clinical Impression: Vaginal bleeding in Disposition: HOME SELF-CARE Condition: Fair Instructions (If sedation given, give patient instructions): Threatened Miscarriage (ED) Additional Instructions: Follow-up with [facility] KELLER MACHINE OPERATOR. The office should be calling you on Wednesday, if they do not call you call their office at the number below. Is important that you get your beta-hCG redrawn tomorrow, it will be sent to their office for them to review. Bring your lab order with you to the outpatient laboratory to have this performed. Report back to ER with any new or worsening symptoms, including but not limited to sudden worsening pain or bleeding, passing out, weakness. Is patient prescribed a controlled substance at d/c from ED?: No Referrals: Osmar Adams DO [Primary Care Provider] - 1-2 days David Jimenes MD [STAFF PHYSICIAN] - 1-2 days Time of Disposition: 19:34
[2024-06-07] MEDS: SODIUM CHLORIDE 0.9% 1,000 ML IV ONE (18:02)
[2024-06-07] MEDS: MORPHINE SULFATE 4 MG/ML SYRINGE IVP STA (18:03)
[2024-06-07 18:05] LABS: Basophils # (A) 0.04 10*3/uL (0.00-0.10); Basophils % (A) 0.4 %; Eosinophils # (A) 0.08 10*3/uL (0.04-0.35); Eosinophils % (A) 0.7 %; HCT 37.2 % (37.2-46.3); HGB 12.9 g/dL (12.0-15.0); Lymphocytes # (A) 3.06 10*3/uL (0.90-5.00); Lymphocytes % (A) 27.1 %; MCH 32.3 pg (27.0-32.0); MCHC 34.7 g/dL (32.0-37.0); Mean Platelet Volume 10.1 fL (9.5-12.2); Monocytes # (A) 0.35 10*3/uL (0.20-1.00); Monocytes % (A) 3.1 %; Neutrophils # (A) 7.74 10*3/uL (1.80-7.70); Neutrophils % (A) 68.3 %; Platelet Count 277 10*3/uL (140-440); RDW 11.4 % (11.5-14.5); WBC 11.31 10*3/uL (4.50-10.00)
[2024-06-07 18:12] LABS: Appearance,Urine Clear (Clear); Bilirubin,Urine Negative (Negative); Blood,Urine Moderate (Negative); Color,Urine Colorless; Glucose,Urine (UA) Negative (Negative); Ketones,Urine Negative (Negative); Leukocyte Esterase,Urine Moderate (Negative); Nitrite,Urine Negative (Negative); PH, Urine 7.5 (5.0-8.0); Protein,Urine Negative (Negative); RBC,Urine 26 /hpf (0-5); Squamous Epithelial Cell,Urine <1 /hpf (0-4); Urobilinogen,Urine <2.0 mg/dL (<2.0); WBC,Urine 24 /hpf (0-5)
[2024-06-07 18:14] LABS: Partial Thromboplastin Time 23.1 sec (22.0-30.0); Prothrombin Time 10.6 sec (10.0-12.5)
[2024-06-07 18:29] LABS: ALT 16 U/L (4-34); AST 27 U/L (14-36); African American GFR (CKD) >90 (>60 ml/min/1.73 sqM); Albumin 4.8 g/dL (3.5-5.0); Alkaline Phosphatase 46 U/L (38-126); Anion Gap 9 mmol/L; Blood Urea Nitrogen 11 mg/dL (7-17); Calcium 9.6 mg/dL (8.4-10.2); Carbon Dioxide 25 mmol/L (22-30); Chloride 105 mmol/L (98-107); Glucose 95 mg/dL (74-99); Non-African American GFR(CKD) >90 (>60 ml/min/1.73 sqM); Potassium 3.8 mmol/L (3.5-5.1); Sodium 139 mmol/L (137-145); Total Bilirubin 0.6 mg/dL (0.2-1.3)
--- NOTE | 2024-06-07 18:32 | US ---
EXAMINATION TYPE: Transabdominal DATE OF EXAM: 06/07/2024 5:40 PM COMPARISON: 06/06/2024 CLINICAL INDICATION: Female, 38 years old with history of worsening pelvic pain and vag bleeding; pat ient here yesterday. states worsening pelvic pain and clotting. patient states pain on left side, how ever has had left tube removed per patient. Hx ectopic. TECHNIQUE: Transvaginal (TV) and Transabdominal (TA) with grayscale and color Doppler imaging includi ng first trimester . FINDINGS: EXAM MEASUREMENTS: GESTATIONAL AGE / DATING Physician Established: Not yet established Dates by LMP: (5 weeks/1 days) EDC: 02/06/2025 Dates by First Scan: could not date by first scan Dates by Current Scan for: Unable to date by today's study MATERNAL ANATOMY Uterus: 8.1 x 4.7 x 4.8cm. The endometrium measures 0.7cm. There is a 1.6 x 1.0 x 1.8cm exophitic hyp oechioc area seen. Right Ovary: 3.8 x 2.3 x 2.5cm. There is a 1.5 x 1.1 x 0.9cm anechoic area seen within. There is also a 2.3 x 2.2 x 2.5cm complex vascular area seen adjacent to the right ovary Left Ovary: 2.2 x 1.1 x 1.7cm. There is a 1.6 x 1.8 x 1.9cm hypoechoic vascular area seen within Post CDS / Adnexa: right adnexa 2.3 x 2.2 x 2.5cm complex vascular area seen within Presence of free fluid: small amount in CDS GESTATION / SURVEY IUP: No IUP seen at this time Date of LMP: 04/22/2024 Beta HcG (if available): Not available at this time IMPRESSION: Complex area adjacent to the right ovary concerning for ectopic given absence of intrauteri ne gestational sac identified. Surgical evaluation recommended. Clinical correlation recommended. Henry dugan are not significantly changed from prior. [facility], , 06/07/2024 6:29 PM
[2024-06-07 18:45] LABS: HCG,Quantitative Serum 5343.5 mIU/mL
[2024-06-07] MEDS: ACET/COD 300 MG/30 MG STARTER PACK 6 TAB BTL PO STA (20:06)
[2024-06-07 20:13] VITALS: BP 113/67; PULSE 76; TEMP 98.3
== END 2024-06-07 20:13 | disposition home or self-care (01) ==
LOC: EC 15:42
DX: O46.91 Antepartum hemorrhage, unspecified, first trimester (principal); O99.331 Smoking (tobacco) complicating pregnancy, first trimester; Z87.59 Personal history of other complications of pregnancy, childbirth and the puerperium; F17.290 Nicotine dependence, other tobacco product, uncomplicated; Z88.5 Allergy status to narcotic agent; Z91.040 Latex allergy status; Z3A.01 Less than 8 weeks gestation of pregnancy
CPT/HCPCS: 36415; 86900; 86901; 80053; 85025; 85610; 85730; 81001; 84702; 87086; 76801; 76817; 99284; 96374; 96361; J2270

== ENCOUNTER → 2024-06-08 | Outpatient (CLI) | payer OTHER | END | disposition home or self-care (01) | LOC: LABWHC1 12:28 | PROVIDERS: ATTEND Obstetrics & Gynecology | DX: O20.0 Threatened abortion (principal); Z3A.00 Weeks of gestation of pregnancy not specified | CPT/HCPCS: 36415; 84702 ==

== ENCOUNTER 2024-06-09 10:13 | Observation (INO) | payer OTHER ==
[2024-06-09 12:46] LABS: HCT 34.8 % (37.2-46.3); HGB 12.2 g/dL (12.0-15.0); MCH 32.4 pg (27.0-32.0); MCHC 35.1 g/dL (32.0-37.0); MCV 92.6 fL (80.0-97.0); Mean Platelet Volume 10.6 fL (9.5-12.2); Platelet Count 249 10*3/uL (140-440); RBC 3.76 10*6/uL (4.10-5.20); RDW 11.5 % (11.5-14.5); WBC 10.77 10*3/uL (4.50-10.00)
[2024-06-09 12:52] LABS: ALT 16 U/L (4-34); AST 25 U/L (14-36); African American GFR (CKD) >90 (>60 ml/min/1.73 sqM); Albumin 4.8 g/dL (3.5-5.0); Alkaline Phosphatase 49 U/L (38-126); Anion Gap 14 mmol/L; Blood Urea Nitrogen 16 mg/dL (7-17); Calcium 9.9 mg/dL (8.4-10.2); Carbon Dioxide 23 mmol/L (22-30); Chloride 102 mmol/L (98-107); Glucose 106 mg/dL (74-99); Magnesium 1.9 mg/dL (1.6-2.3); Non-African American GFR(CKD) >90 (>60 ml/min/1.73 sqM); Potassium 3.7 mmol/L (3.5-5.1); Sodium 139 mmol/L (137-145); Total Bilirubin 0.4 mg/dL (0.2-1.3); Total Protein 7.9 g/dL (6.3-8.2)
[2024-06-09 13:06] LABS: INR 0.9 (<1.2); Partial Thromboplastin Time 23.9 sec (22.0-30.0); Prothrombin Time 10.6 sec (10.0-12.5)
[2024-06-09 13:07] LABS: HCG,Quantitative Serum 5228.3 mIU/mL
--- NOTE | 2024-06-09 13:32 | US ---
EXAMINATION TYPE: Transabdominal DATE OF EXAM: 06/09/2024 1:14 PM COMPARISON: US 06/06, 06/07 CLINICAL INDICATION: Female, 38 years old with history of vag bleeding; worse RT side pain TECHNIQUE: Transvaginal (TV) and Transabdominal (TA) with grayscale and color Doppler imaging includi ng first trimester . FINDINGS: EXAM MEASUREMENTS: GESTATIONAL AGE / DATING Physician Established: Not yet established (5 weeks/3 days) EDC: 02/06/25 Dates by LMP: (5 weeks/3 days) EDC: 02/06/25 Dates by First Scan: unable to date Dates by Current Scan for: Unable to date by today's study MATERNAL ANATOMY Uterus: 8.0x4.3x6.0cm Right Ovary: unable to discern ovary from complex surrounding area measuring approx 4.2x4.6cm Left Ovary: 2.0x2.6x2.0cm Post CDS / Adnexa: free fluid and probable blood product Presence of free fluid: yes Presence of corpus luteal cyst: no Presence of subchorionic bleed: no Date of LMP: 05/02/24 Beta HcG (if available): Not available at this time exam very limited by patient pain IMPRESSION: Redemonstration of complex area adjacent to the right ovary with development of moderate amount of co mplex fluid within the adnexa and posterior cul-de-sac. Findings are highly concerning for ectopic pr egnancy with rupture. Surgical evaluation is recommended. Findings communicated to Dr. Melissa Noland, PAC on 06/09/2024 1:[address] Wiley Rg . [facility], , 06/09/2024 1:30 PM
[2024-06-09] MEDS: HYDROmorphone 0.5 MG/0.5 ML SYRINGE IVP STA (13:34)
--- NOTE | 2024-06-09 13:34 | ED ---
General Adult HPI - General Chief complaint: Vaginal Bleeding Time Seen by Provider: 06/09/24 13:30 Source: patient, RN notes reviewed Mode of arrival: ambulatory Limitations: no limitations - History of Present Illness Initial comments: 38-year-old female presents to the emergency department for evaluation of right- sided abdominal pain. Patient states that she is around 5 weeks . She states that she recently was seen and evaluated for similar symptoms but today the pain got significantly worse and more localized to the right side of her abdomen. She admits to nausea. She states that the pain is caused her to be nauseated and vomited. = She does admit to continued vaginal bleeding with small clot passage.She does report a prior ectopic and a prior miscarriage. - Related Data Home Medications Medication Instructions Recorded Confirmed Dov-Xzky-Lcdpu Acid 1 cap PO DAILY 06/09/24 06/09/24 [-U Capsule (formulary)] Allergies Allergy/AdvReac Type Severity Reaction Status Date / Time latex Allergy Rash/Hives Verified 06/09/24 15:12 morphine AdvReac Rash/Hives Verified 06/09/24 15:12 narcotics AdvReac see comment Uncoded 06/06/24 11:55 Review of Systems ROS Statement: Those systems with pertinent positive or pertinent negative responses have been documented in the HPI. ROS Other: All systems not noted in ROS Statement are negative. Past Medical History Past Medical History: Atrial Fibrillation Additional Past Medical History / Comment(s): no street drug since 2013 cocaine, heroin 2019, opiates, marijuana, meth 2021 History of Any Multi-Drug Resistant Organisms: MRSA Date of last positivie culture/infection: 11/2021 MDRO Source:: Right and Left Arms Past Surgical History: Appendectomy, Section, Cholecystectomy, Orthopedic Surgery Additional Past Surgical History / Comment(s): 2009 eptopic right fallopian tube removed. Past Anesthesia/Blood Transfusion Reactions: No Reported Reaction Past Psychological History: Anxiety, Bipolar, Depression Smoking Status: Vaper Past Alcohol Use History: None Reported Past Drug Use History: Methamphetamine, Opiates - Past Family History Brother(s) Family Medical History: Unable to Obtain Father Family Medical History: Hypertension General Exam Limitations: no limitations General appearance: alert, in no apparent distress Head exam: Present: atraumatic, normocephalic, normal inspection Eye exam: Present: normal appearance, PERRL, EOMI. Absent: scleral icterus, conjunctival injection, periorbital swelling Respiratory exam: Present: normal lung sounds bilaterally. Absent: respiratory distress, wheezes, rales, rhonchi, stridor Cardiovascular Exam: Present: regular rate, normal rhythm, normal heart sounds. Absent: systolic murmur, diastolic murmur, rubs, gallop, clicks GI/Abdominal exam: Present: tenderness (Right lower quadrant), guarding. Absent: distended Extremities exam: Present: normal inspection, full ROM, normal capillary refill. Absent: tenderness, pedal edema, joint swelling, calf tenderness Back exam: Present: normal inspection Neurological exam: Present: alert, oriented X3 Psychiatric exam: Present: normal affect, normal mood Skin exam: Present: warm, dry, intact, normal color. Absent: rash Course Vital Signs 06/09/24 06/09/24 06/09/24 13:00 13:16 13:30 Temperature 98.1 F Pulse Rate 80 Pulse Rate [ Pulse Oximetery ] Respiratory 17 Rate Blood Pressure 115/66 112/73 112/73 Blood Pressure [Left Arm] O2 Sat by Pulse 100 Oximetry 06/09/24 14:30 Temperature 98.1 F Pulse Rate Pulse Rate [ 85 Pulse Oximetery ] Respiratory 18 Rate Blood Pressure Blood Pressure 94/52 [Left Arm] O2 Sat by Pulse 100 Oximetry Medical Decision Making - Medical Decision Making Was pt. sent in by a medical professional or institution (Dr. PA, NURSE SITTER, urgent care, hospital, or halfway...) When possible be specific @ -No Did you speak to anyone other than the patient for history (EMS, parent, family, police, friend...)? What history was obtained from this source @ -No Did you review nursing and triage notes (agree or disagree)? Why? @ -I reviewed and agree with nursing and triage notes Were old charts reviewed (outside hosp., previous admission, EMS record, old EKG, old radiological studies, urgent care reports/EKG's, halfway records)? Report findings @ -No old charts were reviewed Differential Diagnosis (chest pain, altered mental status, abdominal pain women, abdominal pain men, vaginal bleeding, weakness, fever, dyspnea, syncope, headache, dizziness, GI bleed, back pain, seizure, CVA, palpatations, mental health, musculoskeletal)? @ -Differential Vaginal Bleeding: Spontaneous , threatened , molar , ectopic , bloody show, incompetent cervix, abruptioplacenta, placenta previa, uterine rupture, dysfunctional uterine bleeding, hemorrhage, uterine fibroids, this is not meant to be an all-inclusive list. EKG interpreted by me (3pts min.). @ -None X-rays interpreted by me (1pt min.). @ -None done CT interpreted by me (1pt min.). @ -None done U/S interpreted by me (1pt. min.). @ -Ultrasound reveals a complex area in the right adnexa with moderate complex free fluid concerning for ectopic What testing was considered but not performed or refused? (CT, X-rays, U/S, labs)? Why? @ -None What meds were considered but not given or refused? Why? @ -None Did you discuss the management of the patient with other professionals (professionals i.e. , PA, NURSE SITTER, lab, RT, psych nurse, social service technician, medical clerical assistant, teacher, air defense artillery officer, case management manager)? Give summary @ -Management discussed with Dr. Jimenes who came and evaluated the patient and take the patient to the operating room Was smoking cessation discussed for >3mins.? @ -No Was critical care preformed (if so, how long)? @ -No Were there social determinants of health that impacted care today? How? (Homelessness, low income, unemployed, alcoholism, drug addiction, transportation, low edu. Level, literacy, decrease access to med. care, fci, rehab)? @ -No Was there de-escalation of care discussed even if they declined (Discuss DNR or withdrawal of care, Hospice)? DNR status @ -No What co-morbidities impacted this encounter? (DM, HTN, Smoking, COPD, CAD, Cancer, CVA, ARF, Chemo, Hep., AIDS, mental health diagnosis, sleep apnea, morb id obesity)? @ -None Was patient admitted / discharged? Hospital course, mention meds given and rou te, prescriptions, significant lab abnormalities, going to OR and other pertinent info. @ -Admitted. Patient presented to emergency department for evaluation of right sided abdominal pain. Vital signs are stable. Patient is 5 weeks .Laboratory studies obtained revealing no significant leukocytosis, hemoglobin stable at 12.2; normal coagulation studies; CMP is nonactionable, quantitative hCG 5228. This was compared to yesterday and is very minimally changed. Yesterday's value 5181. A repeat ultrasound was obtained and I received critical results from radiology revealing a complex region in the right adnexa with moderate complex free fluid in the area the case was discussed with AUTOMOBILE SERVICE STATION MANAGER, Dr. Jimenes who came to evaluate the patient in the emergency department. The patient was administered 1 L of normal saline in the emergency department. She he is made n.p.o. and plan is to take patient to the OR. Case discussed with physician, Dr. Prince Undiagnosed new problem with uncertain prognosis? @ -No Drug Therapy requiring intensive monitoring for toxicity (Heparin, Nitro, Insulin, Cardizem)? @ -No Were any procedures done? @ -No Diagnosis/symptom? @ -Ectopic Acute, or Chronic, or Acute on Chronic? @ -Acute Uncomplicated (without systemic symptoms) or Complicated (systemic symptoms)? @ -Complicated Side effects of treatment? @ -No Exacerbation, Progression, or Severe Exacerbation? @ -No Poses a threat to life or bodily function? How? (Chest pain, USA, ID, pneumonia, PE, COPD, DKA, ARF, appy, cholecystitis, CVA, Diverticulitis, Homicidal, Suicid al, threat to staff... and all critical care pts) @ -If left untreated, there is a threat to life - Lab Data Result diagrams: 06/09/24 11:45 06/09/24 11:45 Lab Results 06/09/24 06/09/24 06/09/24 Range/Units 11:45 11:45 11:45 WBC 10.77 H (4.50-10.00) 10*3/uL RBC 3.76 L (4.10-5.20) 10*6/uL Hgb 12.2 (12.0-15.0) g/dL Hct 34.8 L (37.2-46.3) % MCV 92.6 (80.0-97.0) fL MCH 32.4 H (27.0-32.0) pg MCHC 35.1 (32.0-37.0) g/dL Plt Count 249 (140-440) 10*3/uL MPV 10.6 (9.5-12.2) fL PT 10.6 (10.0-12.5) sec INR 0.9 (<1.2) APTT 23.9 (22.0-30.0) sec Sodium 139 (137-145) mmol/L Potassium 3.7 (3.5-5.1) mmol/L Chloride 102 (98-107) mmol/L Carbon Dioxide 23 (22-30) mmol/L Anion Gap 14 mmol/L BUN 16 (7-17) mg/dL Creatinine 0.66 (0.52-1.04) mg/dL Est GFR (CKD-EPI)AfAm >90 (>60 ml/min/1.73 sqM) Est GFR (CKD-EPI)NonAf >90 (>60 ml/min/1.73 sqM) Glucose 106 H (74-99) mg/dL Calcium 9.9 (8.4-10.2) mg/dL Magnesium 1.9 (1.6-2.3) mg/dL Total Bilirubin 0.4 (0.2-1.3) mg/dL AST 25 (14-36) U/L ALT 16 (4-34) U/L Alkaline Phosphatase 49 (38-126) U/L Total Protein 7.9 (6.3-8.2) g/dL Albumin 4.8 (3.5-5.0) g/dL HCG, Quant 5228.3 mIU/mL Blood Type Blood Type Recheck Bld Type Recheck Status 06/09/24 Range/Units 11:45 WBC (4.50-10.00) 10*3/uL RBC (4.10-5.20) 10*6/uL Hgb (12.0-15.0) g/dL Hct (37.2-46.3) % MCV (80.0-97.0) fL MCH (27.0-32.0) pg MCHC (32.0-37.0) g/dL Plt Count (140-440) 10*3/uL MPV (9.5-12.2) fL PT (10.0-12.5) sec INR (<1.2) APTT (22.0-30.0) sec Sodium (137-145) mmol/L Potassium (3.5-5.1) mmol/L Chloride (98-107) mmol/L Carbon Dioxide (22-30) mmol/L Anion Gap mmol/L BUN (7-17) mg/dL Creatinine (0.52-1.04) mg/dL Est GFR (CKD-EPI)AfAm (>60 ml/min/1.73 sqM) Est GFR (CKD-EPI)NonAf (>60 ml/min/1.73 sqM) Glucose (74-99) mg/dL Calcium (8.4-10.2) mg/dL Magnesium (1.6-2.3) mg/dL Total Bilirubin (0.2-1.3) mg/dL AST (14-36) U/L ALT (4-34) U/L Alkaline Phosphatase (38-126) U/L Total Protein (6.3-8.2) g/dL Albumin (3.5-5.0) g/dL HCG, Quant mIU/mL Blood Type A Positive Blood Type Recheck A Pos Bld Type Recheck Status No Disposition Clinical Impression: Ectopic Disposition: ADMITTED IP TO THIS [facility] Condition: Stable Is patient prescribed a controlled substance at d/c from ED?: No
[2024-06-09] MEDS ORDERED: NALOXONE 0.4 MG/ML 1 ML VIAL IV PRN (14:05)
[2024-06-09] MEDS ORDERED: HYDROmorphone 2 MG/ML 1 ML SYRINGE IVP PRN (14:05)
--- NOTE | 2024-06-09 14:08 | P.HPOB ---
History of Present Illness H&P Date: 06/09/24 Chief Complaint: Probable ruptured ectopic The patient is a 38-year-old 6 para 2-0-3-2 who today presents to the emergency room for the third time in 4 days with vaginal bleeding and some abdominal pain, significantly increasing today. She has previously been found with a 2+ centimeter complex adnexal mass and no evidence of intrauterine , hCG in the range of 5000. There have been slight increases in the hCG from day today with no evidence of free fluid in the pelvis and her pain was manageable prior to today. She does have a history of a previous ectopic many years ago for which she had a laparotomy and salpingectomy. She is interested in attempting to maintain fertility if possible. Obstetrical history: 6 para 2-0-3-2 with 1 term section and 1 vaginal delivery, 2 early miscarriages and 1 ectopic as noted in history of present illness. Current statistics are listed above. She is approximately 5 to 6 weeks by last menstrual period dating. Blood type is a positive. Gynecologic history: Unremarkable except as noted in history of present illness. Review of Systems Review of systems is confined to history of present illness. Past Medical History Past Medical History: Atrial Fibrillation Additional Past Medical History / Comment(s): no street drug since 2013 cocaine, heroin 2019, opiates, marijuana, meth 2021 History of Any Multi-Drug Resistant Organisms: MRSA Date of last positivie culture/infection: 11/2021 MDRO Source:: Right and Left Arms Past Surgical History: Appendectomy, Section, Cholecystectomy, Orthopedic Surgery Additional Past Surgical History / Comment(s): 2009 eptopic right fallopian tube removed. Past Anesthesia/Blood Transfusion Reactions: No Reported Reaction Past Psychological History: Anxiety, Bipolar, Depression Smoking Status: Vaper Past Alcohol Use History: None Reported Past Drug Use History: Methamphetamine, Opiates - Past Family History Brother(s) Family Medical History: Unable to Obtain Father Family Medical History: Hypertension Medications and Allergies Home Medications Medication Instructions Recorded Confirmed Type Cyclobenzaprine [Flexeril] 5 mg PO TID PRN 5 Days #15 tablet 03/23/24 Rx Ketorolac [Toradol] 10 mg PO Q6HR PRN #20 tab 03/23/24 Rx Allergies Allergy/AdvReac Type Severity Reaction Status Date / Time latex Allergy Rash/Hives Verified 06/06/24 11:55 narcotics AdvReac see comment Uncoded 06/06/24 11:55 Exam Vital Signs Temp Pulse Resp BP Pulse Ox 06/09/24 13:30 112/73 06/09/24 13:16 112/73 06/09/24 13:00 98.1 F 80 17 115/66 100 Intake and Output 06/08/24 06/09/24 06/09/24 22:59 06:59 14:59 Other: Weight 68.039 kg In general, this is a well-developed, well-nourished white female in no acute distress though she does appear uncomfortable. Her heart has a regular rhythm and rate without murmur. Her lungs clear to auscultation bilaterally in all matta. Her abdomen is nondistended, soft, but with moderate guarding and rebound present. She has generalized bilateral lower quadrant tenderness. There is no apparent masses. Her extremities are without any cyanosis, clubbing, or edema and are nontender to palpation bilaterally. Pelvic examination is deferred to the operating room. Results Result Diagrams: 06/09/24 11:45 06/09/24 11:45 Abnormal Lab Results - Last 24 Hours (Table) 06/09/24 06/09/24 Range/Units 11:45 11:45 WBC 10.77 H (4.50-10.00) 10*3/uL RBC 3.76 L (4.10-5.20) 10*6/uL Hct 34.8 L (37.2-46.3) % MCH 32.4 H (27.0-32.0) pg Glucose 106 H (74-99) mg/dL Assessment and Plan (1) Ectopic Current Visit: Yes Status: Acute Code(s): O00.90 - UNSPECIFIED ECTOPIC WITHOUT INTRAUTERINE SNOMED Code(s): 87556320 Plan: Given her positive peritoneal signs, the likelihood of rupture is high and medical management is no longer an option. As a result, we will proceed to the operating room for diagnostic laparoscopy with possible salpingectomy, possible salpingostomy, possible laparotomy. The risks and complications of the procedures have been thoroughly discussed including the risk for bleeding, bleeding chronic transfusion, infection, and injury to local structures to include the bowel, bladder, and ureters. Special attention was paid to the potential risk for a bowel injury given her previous surgeries. She has understood all of this and agreed to proceed. The operating room has been notified and is arranging for the soonest possible time to proceed.
[2024-06-09] MEDS ORDERED: SODIUM CHLORIDE 0.9% 1,000 ML IV SCH (14:15)
[2024-06-09] MEDS: IV FLUID CONTINUATION 1,000 ML IV ONE ×2 (14:31→17:41)
[2024-06-09] MEDS: DEXAMETHASONE SOD PHOSPHATE 4 MG/ML 1 ML VIAL IVP STA (14:49)
[2024-06-09] MEDS: ONDANSETRON 4 MG/2 ML VIAL IVP PRN (14:50)
[2024-06-09] MEDS: LACTATED RINGERS 1,000 ML BAG IV STA (14:55)
[2024-06-09] MEDS: fentaNYL (PF) 50 MCG/ML 2 ML AMP IVP STA (15:06)
[2024-06-09] MEDS ORDERED: ROCURONIUM 10 MG/ML (5 ML VIAL) IV ONE (15:14)
[2024-06-09] MEDS ORDERED: NEOSTIGMINE 1 MG/ML 10 ML VIAL ONE (15:14)
[2024-06-09] MEDS ORDERED: SUCCINYLCHOLINE CHLORIDE 200 MG/10 ML VIAL IV ONE (15:14)
[2024-06-09] MEDS ORDERED: MIDAZOLAM 2 MG/2 ML VIAL ONE (15:14)
[2024-06-09] MEDS ORDERED: fentaNYL (PF) 50 MCG/ML 2 ML AMP ONE (15:14)
[2024-06-09] MEDS ORDERED: PROPOFOL 10 MG/ML 20 ML VIAL IV ONE (15:14)
[2024-06-09] MEDS ORDERED: GLYCOPYRROLATE 0.2 MG/ML 2 ML VIAL ONE (15:14)
[2024-06-09] MEDS ORDERED: LIDOCAINE 1% INJ 10MG/ML (20 ML MDV) ONE (15:14)
[2024-06-09] MEDS: BUPIVACAINE (PF) 0.25% 30 ML VIAL SQ ONE ×2 (15:49→16:32)
[2024-06-09] MEDS ORDERED: diphenhydrAMINE 50 MG/ML 1 ML VIAL IVP PRN (17:35)
[2024-06-09] MEDS ORDERED: diphenhydrAMINE 25 MG CAP PO PRN (17:35)
[2024-06-09] MEDS ORDERED: SIMETHICONE 80 MG CHEWABLE PO PRN (17:35)
[2024-06-09] MEDS ORDERED: IBUPROFEN 600 MG TAB PO PRN (17:35)
[2024-06-09] MEDS ORDERED: METOCLOPRAMIDE 5 MG/ML 2 ML VIAL IVP PRN (17:35)
[2024-06-09] MEDS ORDERED: ACETAMINOPHEN TAB 325 MG TAB PO PRN (17:35)
--- NOTE | 2024-06-09 17:44 | P.OP ---
Date of Procedure: 06/09/24 Preoperative Diagnosis: #1. Presumed right ectopic Postoperative Diagnosis: #1. Right ectopic #2. Hemoperitoneum Procedure(s) Performed: #1. Diagnostic laparoscopy #2. Right partial salpingectomy #3. Evacuation of hemoperitoneum Anesthesia: ZACK Surgeon: David Jimenes Estimated Blood Loss (ml): 600 IV fluids (ml): 600 Urine output (ml): 30 Pathology: other (Portion of right fallopian tube with presumptive ectopic ) Condition: stable Disposition: PACU Operative Findings: Pelvic examination demonstrated a 4-week midplane mobile normal shaped uterus with normal adnexa bilaterally though there was a suggestion of fullness in the right adnexa. Intraoperatively, there was noted to be moderate hemoperitoneum, ultimately measured at approximately 600 mL. The ectopic was noted to be in the fimbriated portion or ampullary region of the right fallopian tube. It appears that a portion of the right fallopian tube may have been missing from her previous ectopic . The ovary was normal. The left tube and ovary appeared to be entirely normal. There was blood in the pericolic gutters and as high as the liver edge. Following the procedure, there was no ongoing bleeding from any of the surgical sites and there was minimal residual blood remaining in the abdomen or pelvis. Description of Procedure: Patient was prepped and draped in usual fashion after general endotracheal anesthesia was administered by the anesthesiologist. A speculum was placed in the anterior lip of the cervix grasped with a single-tooth tenaculum allowing placement of a kroner uterine manipulator. The tenaculum was released. The bladder was drained of approximately 30 mL of clear vernon urine. Attention was turned to the abdomen where a 5 mm incision was made in the transverse plane underneath the umbilicus through her pre-existing scar allowing insertion of a 5 mm optical trocar under direct visualization without difficulty. A pneumoperitoneum was infused and Trendelenburg positioning utilized. The ectopic was identified in the right adnexal region with a moderate amount of hemoperitoneum throughout the entire abdomen and pelvis as noted abo ve. A site was selected in the midline through her pre-existing section scar where a 10 mm incision was made the transverse plane along insertion of a 10 mm optical trocar under direct visualization without difficulty. The site was selected in the right lower quadrant approximately 10 to 12 cm lateral to the optical port and 3 to 4 cm below it where a 5 mm incision was made in the transverse plane allowing insertion of a 5 mm trocar under direct visualization. The midline trocar was utilized to grasp the fimbriated end of the fallopian tube with a grasper and elevated allowing it to be divided from the patient with a LigaSure device leaving the infundibulopelvic ligament and ovary intact. The specimen was then placed into a Endo Catch bag placed through the 10 mm port which was then removed along with the port and sent for pathological diagnoses. The port was ultimately replaced through the same incision and fascial defect. Thorough suction irrigation was carried out and the surgical site was noted to be hemostatic. There was some fairly significant organized clot in the pelvis which could not be broken up with the suction salesperson men's furnishings. After removing the majority of the blood and fluid that could be suctioned and sweeping the omentum from the pelvis, a grasper was utilized to grasp the organized clot and placed into a second Endo Catch bag placed through the 10 mm port. A similar operation was carried out with the entire bag and port removed through the incision. The specimen was included with the previous specimen. Thorough suction irrigation was carried out through the abdomen and pelvis to remove the vast majority of any blood seen which was successful. After ensuring no further pathology, all instrumentation was removed and the pneumoperitoneum evacuated through the 2 ports. The ports were removed and the incisions were closed with interrupted subcuticular stitches of 4-0 Vicryl followed by half-inch Steri-Strips placed with Mastisol. The 3 incisions were then infused with a total of 10 mL of quarter percent Marcaine without epinephrine equally divided among the 3 incisions. Estimated blood loss for the case was approximately 600 mL, primarily just from the hemoperitoneum. All sponge, instrument, and needle counts were correct. The vaginal instruments were removed as well. The patient tolerated the procedure well and proceeded to the recovery room in stable condition.
[2024-06-09] MEDS ORDERED: LACTATED RINGERS 1,000 ML IV SCH (17:45)
[2024-06-09] MEDS: HYDROmorphone 0.5 MG/0.5 ML SYRINGE IVP PRN (18:30)
[2024-06-09] MEDS: KETOROLAC 15 MG/ML 1 ML VIAL IVP PRN (18:33)
[2024-06-09 19:43] VITALS: RESP 16
[2024-06-09 20:50] VITALS: BP 93/56; PULSE 61; TEMP 98.3
== END 2024-06-09 20:00 | disposition home or self-care (01) ==
LOC: EC 10:13 → 4FBP 14:39
PROVIDERS: ADMIT Obstetrics & Gynecology; ATTEND Obstetrics & Gynecology
DX: O00.101 Right tubal pregnancy without intrauterine pregnancy (principal); K66.1 Hemoperitoneum; I48.91 Unspecified atrial fibrillation; F31.9 Bipolar disorder, unspecified; F17.290 Nicotine dependence, other tobacco product, uncomplicated; Z88.5 Allergy status to narcotic agent; Z91.040 Latex allergy status; Z87.59 Personal history of other complications of pregnancy, childbirth and the puerperium
CPT/HCPCS: 96374; 99285; 36415; 86900; 86901; 88305; 80053; 83735; 85027; 85610; 85730; 84702; 76801; 76817; 59151; G0378; J2250; J0330; J1100; J2710; J2405; J2003; J3010; J1885; J2704; J1171; J0665; J1596